=== PATIENT | male | born 1945 | race Caucasian/White ===

== ENCOUNTER 2020-02-16 10:42 | Outpatient (REF) | payer MEDICARE, MEDICAID, SELFPAY ==
[2020-02-16 13:56] LABS: MANUAL DIFF FLAG NO
[2020-02-16 14:02] LABS: Basophils Absolute Auto 0.2 X10*3/uL (0.0-0.2); Eosinophils Absolute Auto 1.2 X10*3/uL (0.0-0.4); Eosinophils Percent Auto 8.4 % (0-4); Hematocrit 47.9 % (42-52); Hemoglobin 15.5 g/dl (14.0-18.0); Imm Gran Abs Auto 0.04 X10*3/uL (0.00-0.03); Imm Gran Pct Auto 0.3 % (0.0-0.4); Lymphocytes Absolute Auto 3.4 X10*3/uL (1.2-4.9); Lymphocytes Percent Auto 23.7 % (20-40); Mean Corpuscular HGB Conc 32.4 g/dl (31.0-36.0); Mean Corpuscular Hemoglobin 30.9 pg (27.0-33.0); Mean Corpuscular Volume 95.6 fL (80-98); Mean Platelet Volume 10.6 fL (9.4-12.4); Monocytes Absolute Auto 1.2 X10*3/uL (0.1-1.2); Monocytes Percent Auto 8.1 % (2-11); Neutrophils Absolute Auto 8.5 X10*3/uL (2.0-8.3); Neutrophils Percent Auto 58.5 % (45-73); Platelet Count 269 X10*3/uL (160-400); Red Blood Count 5.01 X10*6/uL (4.60-5.80); White Blood Count 14.5 X10*3/uL (4.8-10.8)
[2020-02-16 14:41] LABS: Creatinine Urine 123.18 mg/dL
[2020-02-16 14:45] LABS: Alanine Aminotransferase 21 U/L (0-40); Albumin Level 4.4 g/dL (3.5-5.0); Alkaline Phosphatase 81 U/L (39-117); Anion Gap 18 (12-20); Aspartate Amino Transferase 16 U/L (5-37); Bilirubin Total 0.7 mg/dL (0.0-1.0); Blood Urea Nitrogen 11 mg/dL (9-16); Carbon Dioxide 25 mmol/L (22-29); Chloride 101 mmol/L (96-108); Cholesterol 164 mg/dL; Estimated Glomerular Filt Rate > 60; Glucose Random 185 mg/dL (60-115); HDL Cholesterol 35 mg/dL; LDL Cholesterol Calculated 68 mg/dl; Potassium 4.4 mmol/l (3.3-5.1); Sodium 140 mmol/L (135-145); Total Protein 7.3 g/dL (6.5-8.0); Triglycerides 309 mg/dL
[2020-02-16 14:57] LABS: Free T4 (Free Thyroxine) 0.79 ng/dL (0.71-1.85); Thyroid Stimulating Hormone 2.04 uIU/mL (0.32-4.0)
[2020-02-16 16:25] LABS: Folate > 20.0 ng/mL (> or = 4.0); Vitamin B12 661 pg/mL (200-900)
== END 2020-02-16 10:43 | disposition home or self-care (01) ==
LOC: HO.HMGCLDS 10:42
PROVIDERS: PCP Internal Medicine; Visit Provider Internal Medicine
DX: E11.65 Type 2 diabetes mellitus with hyperglycemia (principal); E78.00 Pure hypercholesterolemia, unspecified
CPT/HCPCS: 36415; 80053; 80061; 82043; 82607; 82746; 84439; 84443; 85025

== ENCOUNTER 2020-05-14 07:09 | Outpatient (REF) | payer MEDICARE, MEDICAID, SELFPAY ==
[2020-05-14 07:49] LABS: MANUAL DIFF FLAG NO
[2020-05-14 07:53] LABS: Basophils Absolute Auto 0.1 X10*3/uL (0.0-0.2); Basophils Percent Auto 0.8 % (0-2); Eosinophils Absolute Auto 0.9 X10*3/uL (0.0-0.4); Eosinophils Percent Auto 7.4 % (0-4); Hematocrit 46.2 % (42-52); Hemoglobin 15.2 g/dl (14.0-18.0); Imm Gran Abs Auto 0.04 X10*3/uL (0.00-0.03); Imm Gran Pct Auto 0.3 % (0.0-0.4); Lymphocytes Absolute Auto 2.5 X10*3/uL (1.2-4.9); Lymphocytes Percent Auto 21.5 % (20-40); Mean Corpuscular HGB Conc 32.9 g/dl (31.0-36.0); Mean Corpuscular Hemoglobin 30.8 pg (27.0-33.0); Mean Corpuscular Volume 93.5 fL (80-98); Mean Platelet Volume 9.6 fL (9.4-12.4); Monocytes Absolute Auto 0.9 X10*3/uL (0.1-1.2); Monocytes Percent Auto 7.4 % (2-11); Neutrophils Absolute Auto 7.4 X10*3/uL (2.0-8.3); Neutrophils Percent Auto 62.6 % (45-73); Platelet Count 234 X10*3/uL (160-400); Red Blood Count 4.94 X10*6/uL (4.60-5.80); Red Cell Distribution Width 12.9 % (11.0-16.0); White Blood Count 11.8 X10*3/uL (4.8-10.8)
[2020-05-14 07:59] LABS: Estimated Average Glucose 174 mg/dL; Hemoglobin A1c % 7.7 %
[2020-05-14 08:27] LABS: Alanine Aminotransferase 19 U/L (0-40); Albumin Level 4.4 g/dL (3.5-5.0); Alkaline Phosphatase 77 U/L (39-117); Anion Gap 16 (12-20); Aspartate Amino Transferase 17 U/L (5-37); Bilirubin Total 1.2 mg/dL (0.0-1.0); Blood Urea Nitrogen 14 mg/dL (9-16); Calcium 9.7 mg/dL (8.4-10.2); Carbon Dioxide 29 mmol/L (22-29); Chloride 102 mmol/L (96-108); Cholesterol 157 mg/dL; Estimated Glomerular Filt Rate > 60; Glucose Random 172 mg/dL (60-115); HDL Cholesterol 34 mg/dL; LDL Cholesterol Calculated 88 mg/dl; Potassium 4.6 mmol/L (3.3-5.1); Sodium 142 mmol/L (135-145); Total Protein 7.1 g/dL (6.5-8.0); Triglycerides 179 mg/dL
[2020-05-14 08:49] LABS: Free T4 (Free Thyroxine) 0.85 ng/dL (0.71-1.85); Thyroid Stimulating Hormone 1.34 uIU/mL (0.32-4.0)
[2020-05-14 09:05] LABS: Folate > 20.0 ng/mL (> or = 4.0); Vitamin B12 476 pg/mL (200-900)
== END 2020-05-14 07:10 | disposition home or self-care (01) ==
LOC: HO.LAB 07:09
PROVIDERS: PCP Internal Medicine; Visit Provider Internal Medicine
DX: E11.65 Type 2 diabetes mellitus with hyperglycemia (principal); I10 Essential (primary) hypertension; E78.00 Pure hypercholesterolemia, unspecified
CPT/HCPCS: 36415; 80053; 80061; 82607; 82746; 83036; 84439; 84443; 85025

== ENCOUNTER 2021-05-20 06:18 | Outpatient (REF) | payer MEDICARE, MEDICAID, SELFPAY ==
[2021-05-20 11:20] LABS: MANUAL DIFF FLAG NO
[2021-05-20 11:35] LABS: Basophils Absolute Auto 0.1 X10*3/uL (0.0-0.2); Basophils Percent Auto 0.7 % (0-2); Eosinophils Absolute Auto 0.8 X10*3/uL (0.0-0.4); Eosinophils Percent Auto 6.3 % (0-4); Imm Gran Abs Auto 0.04 X10*3/uL (0.00-0.03); Imm Gran Pct Auto 0.3 % (0.0-0.4); Lymphocytes Absolute Auto 2.8 X10*3/uL (1.2-4.9); Lymphocytes Percent Auto 22.3 % (20-40); Mean Corpuscular HGB Conc 32.6 g/dl (31.0-36.0); Mean Corpuscular Hemoglobin 31.3 pg (27.0-33.0); Mean Platelet Volume 10.3 fL (9.4-12.4); Monocytes Percent Auto 7.8 % (2-11); Neutrophils Percent Auto 62.6 % (45-73); Platelet Count 234 X10*3/uL (160-400); Red Blood Count 4.79 X10*6/uL (4.60-5.80); Red Cell Distribution Width 13.6 % (11.0-16.0); White Blood Count 12.7 X10*3/uL (4.8-10.8)
[2021-05-20 11:48] LABS: Alanine Aminotransferase 14 U/L (0-40); Albumin Level 4.3 g/dL (3.5-5.0); Alkaline Phosphatase 76 U/L (39-117); Anion Gap 15 (12-20); Aspartate Amino Transferase 14 U/L (5-37); Bilirubin Total 1.1 mg/dL (0.0-1.0); Blood Urea Nitrogen 18 mg/dL (9-16); Calcium 9.8 mg/dL (8.4-10.2); Carbon Dioxide 28 mmol/L (22-29); Chloride 103 mmol/L (96-108); Cholesterol 158 mg/dL; Estimated Glomerular Filt Rate > 60; Glucose Random 151 mg/dL (60-115); HDL Cholesterol 36 mg/dL; LDL Cholesterol Calculated 100 mg/dl; Potassium 4.6 mmol/L (3.3-5.1); Sodium 141 mmol/L (135-145); Total Protein 7.2 g/dL (6.5-8.0); Triglycerides 112 mg/dL
[2021-05-20 12:01] LABS: Estimated Average Glucose 137 mg/dL; Hemoglobin A1c % 6.4 %
[2021-05-20 12:12] LABS: Free T4 (Free Thyroxine) 0.86 ng/dL (0.71-1.85); Thyroid Stimulating Hormone 1.81 uIU/mL (0.32-4.0)
[2021-05-20 12:16] LABS: Folate 17.1 ng/mL (> or = 4.0); Vitamin B12 523 pg/mL (200-900)
[2021-05-20 12:35] LABS: Creatinine Urine 104.61 mg/dL; Microalbum/Creatinine Ratio Ur 6.6 ug/mg cr
== END 2021-05-20 06:19 | disposition home or self-care (01) ==
LOC: HO.HMGCLDS 06:18
PROVIDERS: Visit Provider Internal Medicine
DX: E11.65 Type 2 diabetes mellitus with hyperglycemia (principal); E78.00 Pure hypercholesterolemia, unspecified
CPT/HCPCS: 36415; 80053; 80061; 82043; 82607; 82746; 83036; 84439; 84443; 85025

== ENCOUNTER 2022-05-23 12:37 | Outpatient (REF) | payer MEDICARE, MEDICAID, SELFPAY ==
--- NOTE | ~2022-05-23 | XR_ITS ---
EXAMINATION: XR LUMBOSACRAL SPINE CLINICAL INFORMATION: Lumbar degenerative disc disease. COMPARISON: None available. TECHNIQUE: AP and lateral views of the lumbar spine and lateral view of the lumbosacral junction. FINDINGS: There is bony demineralization. There is a slight thoracolumbar dextroscoliosis. At L4-L5, there is moderate disc space narrowing, with vacuum disc phenomenon. The remaining disc spaces are relatively well-maintained. No acute fracture or spondylolisthesis is seen. There is multi-level thoracolumbar spondylosis. There is multi-level lumbar facet arthropathy. There are aortoiliac atherosclerotic calcifications. A 3.6 cm distal aortic aneurysm is noted. XR/XR lumbar spine 2-3V IMPRESSION: 1. There is moderate degenerative disc disease at L4-L5. 2. There is multi-level thoracolumbar spondylosis and facet arthropathy. 3. A 3.6 cm in maximal diameter distal abdominal aortic aneurysm is noted. Recommend further evaluation with ultrasound or MRI. Elective Vascular Surgery evaluation and management may be indicated. A preliminary report was provided by the [facility] on 05/31/2022.
== END 2022-05-23 12:38 | disposition home or self-care (01) ==
LOC: HO.HMGCX 12:37
PROVIDERS: PCP Internal Medicine; Visit Provider Internal Medicine
DX: M51.36 Other intervertebral disc degeneration, lumbar region (principal)
CPT/HCPCS: 72100

== ENCOUNTER 2022-06-02 05:59 | Outpatient (REF) | payer MEDICARE, MEDICAID, SELFPAY ==
[2022-06-02 06:14] LABS: MANUAL DIFF FLAG NO
[2022-06-02 07:33] LABS: Basophils Absolute Auto 0.1 X10*3/uL (0.0-0.2); Eosinophils Absolute Auto 0.7 X10*3/uL (0.0-0.4); Eosinophils Percent Auto 6.4 % (0-4); Hematocrit 47.9 % (42.0-52.0); Hemoglobin 15.8 g/dl (14.0-18.0); Imm Gran Abs Auto 0.04 X10*3/uL (0.00-0.03); Imm Gran Pct Auto 0.3 % (0.0-0.4); Lymphocytes Absolute Auto 2.9 X10*3/uL (1.2-4.9); Lymphocytes Percent Auto 25.1 % (20-40); Mean Corpuscular Volume 93.9 fL (80.0-98.0); Monocytes Percent Auto 8.6 % (2-11); Neutrophils Absolute Auto 6.7 x10*3/uL (2.0-8.3); Neutrophils Percent Auto 58.6 % (45-73); Platelet Count 267 X10*3/uL (160-400); Red Cell Distribution Width 13.4 % (11.0-16.0); White Blood Count 11.5 X10*3/uL (4.8-10.8)
[2022-06-02 07:58] LABS: Estimated Average Glucose 174 mg/dL; Hemoglobin A1c % 7.7 %
[2022-06-02 08:12] LABS: Alanine Aminotransferase 20 U/L (0-40); Albumin Level 4.4 g/dL (3.5-5.0); Alkaline Phosphatase 80 U/L (39-117); Anion Gap 13 (12-20); Aspartate Amino Transferase 16 U/L (5-37); Bilirubin Total 1.3 mg/dL (0.0-1.0); Blood Urea Nitrogen 15 mg/dL (9-16); Calcium 9.6 mg/dL (8.4-10.2); Carbon Dioxide 30 mmol/L (22-29); Chloride 103 mmol/L (96-108); Cholesterol 160 mg/dL; Estimated Glomerular Filt Rate > 60; Glucose Random 145 mg/dL (60-115); HDL Cholesterol 39 mg/dL; LDL Cholesterol Calculated 96 mg/dl; Potassium 4.4 mmol/L (3.3-5.1); Sodium 142 mmol/L (135-145); Total Protein 6.9 g/dL (6.5-8.0); Triglycerides 125 mg/dL
[2022-06-02 08:30] LABS: Creatinine Urine 75.47 mg/dL; Microalbum/Creatinine Ratio Ur 10.6 ug/mg cr
[2022-06-02 08:44] LABS: Folate 14.2 ng/mL (> or = 4.0); Free T4 (Free Thyroxine) 0.95 ng/dL (0.71-1.85); Thyroid Stimulating Hormone 2.12 uIU/mL (0.32-4.0); Vitamin B12 624 pg/mL (200-900)
== END 2022-06-02 06:00 | disposition home or self-care (01) ==
LOC: HO.LAB 05:59
PROVIDERS: PCP Internal Medicine; Visit Provider Internal Medicine
DX: E11.65 Type 2 diabetes mellitus with hyperglycemia (principal); E78.00 Pure hypercholesterolemia, unspecified
CPT/HCPCS: 36415; 80053; 80061; 82043; 82607; 82746; 83036; 84439; 84443; 85025

== ENCOUNTER 2022-06-26 08:56 | Outpatient (REF) | payer MEDICARE, MEDICAID, SELFPAY ==
--- NOTE | ~2022-06-26 | US_ITS ---
EXAMINATION: US RETROPERITONEAL LIMITED (AORTA) CLINICAL INFORMATION: Abdominal aortic aneurysm without rupture, unspecified. COMPARISON: None available. TECHNIQUE: Ohara-scale, color Doppler and spectral Doppler evaluation of the abdominal aorta. FINDINGS: The measurements of the aorta in maximum AP and transverse dimensions respectively are as follows: Proximal: 2.9 x 3.0 cm. Mid: 2.3 x 2.2 cm. Distal: 3.1 x 3.1 cm. PSV: 75.6 cm/s. The measurements of the common iliac arteries in maximum AP and TRV dimensions are as follows: Right Common Iliac Artery: 1.5 x 1.4 cm. Left Common Iliac Artery: 1.1 x 1.9 cm. US/US abdominal aortic aneurysm IMPRESSION: 3.1 cm infrarenal abdominal aortic aneurysm Best Practice Recommendation: Based on published guidelines in J Am Phil Radiol 2013; 10(10):789-794 and J Vasc Surg. 2018; 67:2-77, the recommendation for an abdominal aortic aneurysm with diameter 3.0-3.4 cm is follow-up every 3 years.
== END 2022-06-26 08:57 | disposition home or self-care (01) ==
LOC: HO.US 08:56
PROVIDERS: PCP Internal Medicine; Visit Provider Internal Medicine
DX: I71.40 Abdominal aortic aneurysm, without rupture, unspecified (principal)
CPT/HCPCS: 76706

== ENCOUNTER 2022-12-06 10:39 | Outpatient (AMB) | payer MEDICARE, MEDICAID, SELFPAY ==
--- NOTE | 2022-12-06 10:41 | A.OFFPC_ITS ---
Vital Signs 12/06/22 10:44 Height 6 ft Weight 301 lb BMI 40.8 BP 118/66 Blood Pressure Location Lt brachial Position Sitting Pulse 81 Pulse Source Pulse Oximeter Pulse Oximetry (%) 96 Oxygen Delivery Method Room Air Intake Visit Reasons: LBP, DM Abdominal aortic aneurysm, Intake Note: Patient here for LBP, DM, Abdominal Aortic Aneurysm Material Carrier Required: No Accompanied by: Self / Same As Patient Allergies semaglutide Allergy (Intermediate, Verified 12/06/22 10:46) nausea and vomiting and diarrhea Medication List - Last Reconciled 12/06/22 by Wendy Mcrae MD albuterol sulfate 2.5 mg (3 mL) inhalation QID PRN albuterol sulfate 90 mcg/actuation 2 puffs PO Q4-6H PRN empagliflozin 25 mg PO DAILY fluticasone propionate 50 mcg/actuation 1 spray intranasal DAILY fluticasone propionate 220 mcg/actuation (Flovent HFA) 2 puffs inhalation BID gabapentin 300 mg PO BEDTIME glipizide 5 mg PO DAILY 90 days lisinopril 20 mg PO DAILY metformin 1,000 mg PO BID [nebulizer As directed] oxycodone-acetaminophen 5-325 mg (Percocet) 1 tab PO TID PRN paroxetine HCl 20 mg PO QAM simvastatin 20 mg PO BEDTIME Tobacco use date assessed: 04/17/22 Fall risk assessment: No Falls in past year Last assessed Fall Risk: 12/06/22 Dental Screening Dental Screen Date: 12/06/22 Did you have a dental visit in the last 12 months?: No Did you have a dental problem in the last 6 months where you did not have access to dental care?: No Was dental information given to patient?: Patient declined HPI LBP, DM Abdominal aortic aneurysm, HPI Details 77-year-old morbidly obese male with con trolled diabetes mellitus hypertension hypercholesterol E and generalized anxiety disorder last seen in August 2022. Patient has osteoarthritis on narcotic pain medication. May complete blood work noted A1c coming down [facility] Medical History (Updated 12/06/22 @ 11:31 by Wendy Mcrae MD) Peripheral neuropathy Umbilical hernia Herniated intervertebral disc of lumbar spine Type 2 diabetes mellitus with hyperglycemia Hypercholesterolemia Gout Degenerative disc disease, lumbar Anxiety and depression Obesity Obstructive sleep apnea Hypertension Asthma Surgical History History of nasal surgery Family History Father No problems noted. Mother No problems noted. Social History Housing: Assisted Living Facility Alcohol intake: never Patient Tobacco Use Status: Former Tobacco user Tobacco use type: Cigarette e-Cigarette/Vaping Use: Never Used Second Hand Smoke Exposure: No service: No Current occupational status: disabled Cognitive needs: No Hearing needs: Yes Vision needs: Yes Questionnaire Thrive Questionnaire Date Thrive assessed: 04/17/22 STEPHEN-7 AMB Questionnaire STEPHEN-7 Date STEPHEN - 7 assessed: 04/17/22 Source: Developed by Drs. Fan Fitzpatrick, Saranya Dorantes, Simón Russo and colleagues, with an educational alana from [employer]. Physical exam (Primary Care) Vital Signs: Last Vital Signs Pulse 81 12/06/22 10:44 BP 118/66 12/06/22 10:44 Pulse Ox 96 12/06/22 10:44 Oxygen Delivery Method Room Air 12/06/22 10:44 BMI result Body Mass Index 40.8 Tobacco/Smoking Status: Tobacco use Status Tobacco use date assessed 04/17/22 12/06/22 10:42 Patient Tobacco Use Status Former Tobacco user 12/06/22 10:42 Tobacco use type Cigarette 12/06/22 10:42 e-Cigarette/Vaping Use Never Used 12/06/22 10:42 Thrive Assessment: Date of Thrive Assessment Date Thrive assessed 04/17/22 12/06/22 10:42 Const General: alert; No acute distress Eyes Conjunctivae: conjunctivae normal Resp Auscultation: clear to auscultation bilaterally Cardio Rate: regular rate Rhythm: regular rhythm GI Inspection: Yes normal to inspection Extrem General: Yes normal to inspection and No edema Results AMB Hemoglobin A1c AMB Hemoglobin A1c 6.0 % Last Edit by RENETTA Nazario on 12/06/22 10:5 4 Results Reviewed Results Reviewed: Laboratory Last Values Hgb A1c (Clinic) 6.0 % (4.0-6.0) 12/06/22 10:52 Assessment and Plan Assessment & Plan (1) Type 2 diabetes mellitus with hyperglycemia: Comment: eye [facility] [facility] Code(s): E11.65 - Type 2 diabetes mellitus with hyperglycemia Qualifiers: Diabetes mellitus exterminator helper insulin use: without senior care use Qualified Code(s): E11.65 - Type 2 diabetes mellitus with hyperglycemia Plan: Decrease the amount of carbohydrate intake, pasta, bread, rice and potatoes are all sugar and that is aside from all the sweet stuff, remember that fruits are good but they are Sweet also. Hemoglobin A1c goal of less than 7.0. Patient on Jardiance glipizide 5 mg once a day metformin a 1000 mg twice a day . . did indicate that he gets tiredness at times and question of low sugars and with his number getting down would discontinue the glipizide. (2) Hypercholesterolemia: Code(s): E78.00 - Pure hypercholesterolemia, unspecified Plan: Avoid fried foods, chicken skin, eggs, butter margarine, pastries and meat. Be it pork or beef they have a lot of cholesterol May 2022 last blood work LDL goal of less than 100 and triglyceride of less than 150. Patient on simvastatin 20 mg at bedtime (3) Generalized anxiety disorder: Comment: decline counselling 02/2021 Code(s): F41.1 - Generalized anxiety disorder Plan: Continue with therapy and medications (4) Hypertension: Code(s): I10 - Essential (primary) hypertension Qualifiers: Hypertension type: essential hypertension Qualified Code(s): I10 - Essential (primary) hypertension Plan: Continue with blood pressure medication. Decrease salt intake and exercise patient takes lisinopril 20 mg once a day (5) Obesity: Code(s): E66.9 - Obesity, unspecified Qualifiers: Obesity type: due to excess calories Obesity classification: adult class 3 (BMI >= 40) Serious obesity comorbidity presence: with serious comorbidity Body mass index: BMI 40.0-44.9 Qualified Code(s): E66.01 - Morbid (severe) obesity due to excess calories; Z68.41 - Body mass index [BMI]40.0- 44.9, adult Plan: Diet and exercise noted weight loss (6) Degenerative disc disease, lumbar: Code(s): M51.36 - Other intervertebral disc degeneration, lumbar region Plan: Narcotic pain meds: Is being prescribed with the understanding that these medications are potentially addictive and should be used only when absolutely necessary and must always be secured. Any remaining pills should be safely disposed off appropriately. Patient is advised that narcotics can impaired judgment and one should not drive or operate heavy machinery while taking these medications. Never share these medications with anybody and do not leave them unattended. They will not be replaced under any circumstances. (7) Colon cancer screening: Code(s): Z12.11 - Encounter for screening for malignant neoplasm of colon Orders: Orders AMB Hemoglobin A1c Today E11.65 - Type 2 diabetes mellitus with hyperglycemia Referrals Cologuard Test Z12.11 - Encounter for screening for malignant neoplasm of colon Medications: Discontinued glipizide Discontinued Reason: Doctor's Order 5 mg PO DAILY 90 days 90 tabs 2RF Coding Level of Care Code Est Pt Level 4 (50578) Diagnoses Type 2 diabetes mellitus with hyperglycemia, without long-term current use of insulin E11.65 Diabetes mellitus senior care insulin use: without exterminator helper use Hypercholesterolemia E78.00 Generalized anxiety disorder F41.1 Essential hypertension I10 Hypertension type: essential hypertension Class 3 severe obesity due to excess calories with serious comorbidity and body mass index (BMI) of 40.0 to 44.9 in adult E66.01; Z68.41 Obesity type: due to excess calories Obesity classification: adult class 3 (BMI >= 40) Serious obesity comorbidity presence: with serious comorbidity Body mass index: BMI 40.0-44.9 Degenerative disc disease, lumbar M51.36 Colon cancer screening Z12.11
[2022-12-06 10:44] VITALS: BP 118/66; PULSE 81; O2SAT 96; BMI 40.8
== END 2022-12-06 11:37 | disposition home or self-care (01) ==
PROVIDERS: PCP Internal Medicine; Visit Provider Internal Medicine
DX: E11.65 Type 2 diabetes mellitus with hyperglycemia (principal); E78.00 Pure hypercholesterolemia, unspecified; E66.01 Morbid (severe) obesity due to excess calories; Z68.41 Body mass index [BMI] 40.0-44.9, adult; F41.1 Generalized anxiety disorder; I10 Essential (primary) hypertension; M51.36 Other intervertebral disc degeneration, lumbar region; Z12.11 Encounter for screening for malignant neoplasm of colon
CPT/HCPCS: 83036; 99214

== ENCOUNTER 2023-04-03 10:33 | Outpatient (AMB) | payer MEDICARE, MEDICAID, SELFPAY ==
--- NOTE | 2023-04-03 10:33 | A.OFFPC_ITS ---
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 Patient does receive narcotic pain medication regularly. Had Cologuard positive and was referred to Gastroenterology but patient has not seen the doctor. [facility] Medical History (Updated 12/25/22 @ 18:26 by Wendy Mcrae MD) Peripheral neuropathy Umbilical hernia Herniated intervertebral disc of lumbar spine Type 2 diabetes mellitus with hyperglycemia Hypercholesterolemia Gout Degenerative disc disease, lumbar Anxiety and depression Obesity Obstructive sleep apnea Hypertension Asthma Surgical History History of nasal surgery Family History Father No problems noted. Mother No problems noted. Social History Housing: Assisted Living Facility Alcohol intake: never Patient Tobacco Use Status: Former Tobacco user Tobacco use type: Cigarette e-Cigarette/Vaping Use: Never Used Second Hand Smoke Exposure: No service: No Current occupational status: disabled Cognitive needs: No Hearing needs: Yes Vision needs: Yes Questionnaire Thrive Questionnaire Date Thrive assessed: 04/03/23 AUDIT C Alcohol Use Questionnaire (AUDIT-C) 1. How often do you have a drink containing alcohol?: Never 3. How often do you have six or more drinks on one occasion?: Never Total Score: 0 STEPHEN-7 AMB Questionnaire STEPHEN-7 Date STEPHEN - 7 assessed: 04/03/23 Source: Developed by Drs. Fan Fitzpatrick, Saranya Dorantes, Simón Russo and colleagues, with an educational alana from [employer]. Physical exam (Primary Care) Tobacco/Smoking Status: Tobacco use Status Tobacco use date assessed 04/03/23 04/03/23 10:35 Patient Tobacco Use Status Former Tobacco user 04/03/23 10:35 Tobacco use type Cigarette 04/03/23 10:35 e-Cigarette/Vaping Use Never Used 04/03/23 10:35 Thrive Assessment: Date of Thrive Assessment Date Thrive assessed 04/03/23 04/03/23 10:35 Telehealth Telehealth Location of provider rendering services: practice address Location of patient: address on file Patient Identification confirmed using: Name, : Yes Telehealth method: voice only (android) Patient verbally consented to treatment: Yes Patient verbally consented to billing insurance company: Yes Patient informed of any privacy concerns related to visit: Yes Minutes spent on Phone/Video with Pt.: 25 Assessment and Plan Assessment & Plan (1) Positive colorectal cancer screening using Cologuard test: Code(s): R19.5 - Other fecal abnormalities Plan: Patient is reminded about gastroenterology referral. (2) Type 2 diabetes mellitus with hyperglycemia: Comment: eye [facility] Code(s): E11.65 - Type 2 diabetes mellitus with hyperglycemia Qualifiers: Diabetes mellitus termite exterminator helper insulin use: without shelter use Qualified Code(s): E11.65 - Type 2 diabetes mellitus with hyperglycemia Plan: Decrease the amount of carbohydrate intake, pasta, bread, rice and potatoes are all sugar and that is aside from all the sweet stuff, remember that fruits are good but they are Sweet also. Hemoglobin A1c goal of less than 6.5 patient takes Jardiance 25 mg once a day and metformin a 1000 mg twice a day (3) Hypercholesterolemia: Code(s): E78.00 - Pure hypercholesterolemia, unspecified Plan: Avoid fried foods, chicken skin, eggs, butter margarine, pastries and meat. Be it pork or beef they have a lot of cholesterol LDL goal of less than 100 and triglyceride of less than 150 May 2022 last blood work (4) Obesity: Code(s): E66.9 - Obesity, unspecified Qualifiers: Obesity type: due to excess calories Obesity classification: adult class 3 (BMI >= 40) Serious obesity comorbidity presence: with serious comorbidity Body mass index: BMI 40.0-44.9 Qualified Code(s): E66.01 - Morbid (severe) obesity due to excess calories; Z68.41 - Body mass index [BMI]40.0-44.9 , adult Plan: Diet and exercise (5) Hypertension: Code(s): I10 - Essential (primary) hypertension Qualifiers: Hypertension type: essential hypertension Qualified Code(s): I10 - Essential (primary) hypertension Plan: Continue with blood pressure medication. Decrease salt intake and exercise patient on lisinopril 20 mg once a day (6) Degenerative disc disease, lumbar: Code(s): M51.36 - Other intervertebral disc degeneration, lumbar region Plan: Narcotic pain meds: Is being prescribed with the understanding that these medications are potentially addictive and should be used only when absolutely necessary and must always be secured. Any remaining pills should be safely disposed off appropriately. Patient is advised that narcotics can impaired judgment and one should not drive or operate heavy machinery while taking these medications. Never share these medications with anybody and do not leave them unattended. They will not be replaced under any circumstances. Orders: Orders Complete Blood Count Auto Diff 3 Months E11.65 - Type 2 diabetes mellitus with hyperglycemia Free T4 (Free Thyroxine) 3 Months E11.65 - Type 2 diabetes mellitus with hyperglycemia Thyroid Stimulating Hormone 3 Months E11.65 - Type 2 diabetes mellitus with hyp erglycemia Lipid Panel 3 Months E11.65 - Type 2 diabetes mellitus with hyperglycemia, E78.00 - Pure hypercholesterolemia, unspecified Vitamin B12 and Folate 3 Months E11.65 - Type 2 diabetes mellitus with hyperglycemia Microalbumin, Random (w Creat) 3 Months E11.65 - Type 2 diabetes mellitus with hyperglycemia Hemoglobin A1c 3 Months E11.65 - Type 2 diabetes mellitus with hyperglycemia Comprehensive Met. Panel 3 Months E11.65 - Type 2 diabetes mellitus with hyp erglycemia Creatinine Urine 3 Months E11.65 - Type 2 diabetes mellitus with hyperglycemia Medications: Refilled oxycodone-acetaminophen 5-325 mg (Percocet) 1 tab PO TID PRN 90 tabs 0RF pain E78.00 - Pure hypercholesterolemia, unspecified Coding Level of Care Code Tele Est Pt Level 4 (92961) Diagnoses Positive colorectal cancer screening using Cologuard test R19.5 Type 2 diabetes mellitus with hyperglycemia, without long-term current use of insulin E11.65 Diabetes mellitus termite exterminator helper insulin use: without termite exterminator helper use Hypercholesterolemia E78.00 Class 3 severe obesity due to excess calories with serious comorbidity and body mass index (BMI) of 40.0 to 44.9 in adult E66.01; Z68.41 Obesity type: due to excess calories Obesity classification: adult class 3 (BMI >= 40) Serious obesity comorbidity presence: with serious comorbidity Body mass index: BMI 40.0-44.9 Essential hypertension I10 Hypertension type: essential hypertension Degenerative disc disease, lumbar M51.36
== END 2023-04-03 12:41 | disposition home or self-care (01) ==
LOC: HO.HMGH 10:33
PROVIDERS: PCP Internal Medicine; Visit Provider Internal Medicine
DX: E11.65 Type 2 diabetes mellitus with hyperglycemia (principal); E66.01 Morbid (severe) obesity due to excess calories; Z68.41 Body mass index [BMI] 40.0-44.9, adult; R19.5 Other fecal abnormalities; E78.00 Pure hypercholesterolemia, unspecified; I10 Essential (primary) hypertension; M51.36 Other intervertebral disc degeneration, lumbar region
CPT/HCPCS: 99443

== ENCOUNTER 2023-06-12 06:57 | Outpatient (REF) | payer MEDICARE, MEDICAID, SELFPAY ==
[2023-06-12 10:22] LABS: MANUAL DIFF FLAG NO
[2023-06-12 10:42] LABS: Basophils Absolute Auto 0.1 X10*3/uL (0.0-0.2); Basophils Percent Auto 1.1 % (0-2); Eosinophils Absolute Auto 0.7 X10*3/uL (0.0-0.4); Eosinophils Percent Auto 7.8 % (0-4); Hematocrit 48.9 % (42.0-52.0); Hemoglobin 16.2 g/dl (14.0-18.0); Imm Gran Abs Auto 0.03 X10*3/uL (0.00-0.03); Imm Gran Pct Auto 0.3 % (0.0-0.4); Lymphocytes Absolute Auto 2.3 X10*3/uL (1.2-4.9); Lymphocytes Percent Auto 25.2 % (20-40); Mean Corpuscular HGB Conc 33.1 g/dl (31.0-36.0); Mean Corpuscular Hemoglobin 31.6 pg (27.0-33.0); Mean Corpuscular Volume 95.3 fL (80.0-98.0); Mean Platelet Volume 10.7 fL (9.4-12.4); Monocytes Absolute Auto 0.8 X10*3/uL (0.1-1.2); Monocytes Percent Auto 8.7 % (2-11); Neutrophils Absolute Auto 5.3 x10*3/uL (2.0-8.3); Neutrophils Percent Auto 56.9 % (45-73); Platelet Count 217 X10*3/uL (160-400); Red Blood Count 5.13 X10*6/uL (4.60-5.80); Red Cell Distribution Width 13.2 % (11.0-16.0); White Blood Count 9.2 X10*3/uL (4.8-10.8)
[2023-06-12 11:06] LABS: Estimated Average Glucose 160 mg/dL; Hemoglobin A1c % 7.2 % (<6.0)
[2023-06-12 11:13] LABS: Creatinine Urine 60.85 mg/dL; Microalbum/Creatinine Ratio Ur 9.8 ug/mg cr (<30)
[2023-06-12 12:03] LABS: Alanine Aminotransferase 14 U/L (0-40); Albumin Level 4.2 g/dL (3.5-5.0); Alkaline Phosphatase 76 U/L (39-117); Anion Gap 13 (12-20); Aspartate Amino Transferase 15 U/L (5-37); Blood Urea Nitrogen 13 mg/dL (9-16); Calcium 9.8 mg/dL (8.4-10.2); Carbon Dioxide 28 mmol/L (22-29); Chloride 104 mmol/L (96-108); Cholesterol 154 mg/dL (<200); Estimated Glomerular Filt Rate > 60; Glucose Random 147 mg/dL (60-115); HDL Cholesterol 42 mg/dL (>40); LDL Cholesterol Calculated 92 mg/dL (<100); Potassium 4.1 mmol/L (3.3-5.1); Sodium 141 mmol/L (135-145); Total Protein 7.4 g/dL (6.5-8.0); Triglycerides 103 mg/dL (<150)
[2023-06-12 12:10] LABS: Folate 11.6 ng/mL (> or = 4.0); Vitamin B12 739 pg/mL (200-900)
[2023-06-12 12:32] LABS: Free T4 (Free Thyroxine) 0.84 ng/dL (0.71-1.85); Thyroid Stimulating Hormone 2.02 uIU/mL (0.32-4.0)
== END 2023-06-12 06:58 | disposition home or self-care (01) ==
LOC: HO.HMGCLDS 06:57
PROVIDERS: PCP Internal Medicine; Visit Provider Internal Medicine
DX: E11.65 Type 2 diabetes mellitus with hyperglycemia (principal); E78.00 Pure hypercholesterolemia, unspecified
CPT/HCPCS: 36415; 80053; 80061; 82043; 82570; 82607; 82746; 83036; 84439; 84443; 85025

== ENCOUNTER 2023-07-13 10:14 | Outpatient (AMB) | payer MEDICARE, MEDICAID, SELFPAY ==
[2023-07-13 10:20] VITALS: BP 124/62; PULSE 78; O2SAT 93; BMI 40.8
--- NOTE | 2023-07-13 10:20 | MHC.PC.OV ---
Vital Signs 07/13/23 10:20 Height 6 ft Weight 301 lb BMI 40.8 BP 124/62 Blood Pressure Location Lt brachial Position Sitting Pulse 78 Pulse Source Pulse Oximeter Pulse Oximetry (%) 93 Oxygen Delivery Method Room Air Intake Visit Reasons: DM , LBP Cable Weaver Required: No Allergies semaglutide Allergy (Intermediate, Verified 07/13/23 10:20) nausea and vomiting and diarrhea Tobacco use date assessed: 07/13/23 Fall risk assessment: No Falls in past year Last assessed Fall Risk: 07/13/23 Dental Screening Dental Screen Date: 12/06/22 HPI DM , LBP HPI Details 77-year-old morbidly obese male with diabetes mellitus hypercholesterolemia hypertension lumbar degenerative disc disease on narcotic pain medication seen every 3 months for refill on the pain medication. Patient had a positive Cologuard test and has been referred to Gastroenterology. [facility] Medical History (Updated 07/13/23 @ 11:10 by Wendy Mcrae MD) Peripheral neuropathy Umbilical hernia Herniated intervertebral disc of lumbar spine Type 2 diabetes mellitus with hyperglycemia Hypercholesterolemia Gout Degenerative disc disease, lumbar Anxiety and depression Obesity Obstructive sleep apnea Hypertension Asthma Surgical History History of nasal surgery Family History Father No problems noted. Mother No problems noted. Social History Housing: Assisted Living Facility Alcohol intake: never Patient Tobacco Use Status: Former Tobacco user Tobacco use type: Cigarette e-Cigarette/Vaping Use: Never Used Second Hand Smoke Exposure: No service: No Current occupational status: disabled Cognitive needs: No Hearing needs: Yes Vision needs: Yes Questionnaire Thrive Questionnaire Date Thrive assessed: 04/03/23 I am a: Patient What is your living situation today?: I have a steady place to live Within the past 12 months, did the food you bought not last and you didn't have the money to get more?: Never true Within the past 12 months, did you worry whether your food would run out before you got money to buy more?: Never true Do you have trouble paying for medicines?: No Do you have trouble getting transportation to medical appointments?: No Do you have trouble paying your heating and electricity bill?: No Do you have trouble taking care of your child, family member or friend?: No Do you have trouble with day-to-day activities such as bathing, preparing meals, shopping, managing finances, etc.?: No Are you currently unemployed and looking for a job?: No Are you interested in more education?: No Please select the resources that you would like help with: None Currently or been in a relationship where the following occur: no concerns reported THRIVE Score: 0 AUDIT C Alcohol Use Questionnaire (AUDIT-C) 1. How often do you have a drink containing alcohol?: Never 3. How often do you have six or more drinks on one occasion?: Never Total Score: 0 STEPHEN-7 AMB Questionnaire STEPHEN-7 Date STEPHEN - 7 assessed: 04/03/23 Source: Developed by Drs. Fan Fitzpatrick, Saranya Dorantes, Simón Russo and colleagues, with an educational alana from [employer]. Physical exam (Primary Care) Vital Signs: Last Vital Signs Pulse 78 07/13/23 10:20 BP 124/62 07/13/23 10:20 Pulse Ox 93 07/13/23 10:20 Oxygen Delivery Method Room Air 07/13/23 10:20 BMI result Body Mass Index 40.8 Tobacco/Smoking Status: Tobacco use Status Tobacco use date assessed 07/13/23 07/13/23 10:21 Patient Tobacco Use Status Former Tobacco user 07/13/23 10:21 Tobacco use type Cigarette 07/13/23 10:21 e-Cigarette/Vaping Use Never Used 07/13/23 10:21 Thrive Assessment: Date of Thrive Assessment Date Thrive assessed 04/03/23 07/13/23 10:21 Currently or been in a relationship where the following occur: no concerns reported Const General: alert; No acute distress Eyes Conjunctivae: conjunctivae normal Resp Auscultation: clear to auscultation bilaterally Cardio Rate: regular rate Rhythm: regular rhythm GI Inspection: Yes normal to inspection Extrem General: Yes normal to inspection and No edema Assessment and Plan Assessment & Plan (1) Positive colorectal cancer screening using Cologuard test: Code(s): R19.5 - Other fecal abnormalities Plan: Patient is reminded again about the colonoscopy. (2) Type 2 diabetes mellitus with hyperglycemia: Comment: eye [facility] Code(s): E11.65 - Type 2 diabetes mellitus with hyperglycemia Qualifiers: Diabetes mellitus long term care social worker insulin use: without long term care social worker use Qualified Code(s): E11.65 - Type 2 diabetes mellitus with hyperglycemia Plan: Decrease the amount of carbohydrate intake, pasta, bread, rice and potatoes are all sugar and that is aside from all the sweet stuff, remember that fruits are good but they are Sweet also. Hemoglobin A1c goal of less than 7.0 on Jardiance 25 mg once a day metformin 1000 mg twice a day (3) Hypercholesterolemia: Code(s): E78.00 - Pure hypercholesterolemia, unspecified Plan: Avoid fried foods, chicken skin, eggs, butter margarine, pastries and meat. Be it pork or beef they have a lot of cholesterol taking simvastatin 20 mg once a day (4) Hypertension: Code(s): I10 - Essential (primary) hypertension Qualifiers: Hypertension type: essential hypertension Qualified Code(s): I10 - Essential (primary) hypertension Plan: Continue with blood pressure medication. Decrease salt intake and exercise takes lisinopril 20 mg once a day (5) Generalized anxiety disorder: Comment: decline counselling 02/2021 Code(s): F41.1 - Generalized anxiety disorder Plan: Stable with the medication (6) Degenerative disc disease, lumbar: Code(s): M51.36 - Other intervertebral disc degeneration, lumbar region Plan: Narcotic pain meds: Is being prescribed with the understanding that these medications are potentially addictive and should be used only when absolutely necessary and must always be secured. Any remaining pills should be safely disposed off appropriately. Patient is advised that narcotics can impaired judgment and one should not drive or operate heavy machinery while taking these medications. Never share these medications with anybody and do not leave them unattended. They will not be replaced under any circumstances. (7) Obesity: Code(s): E66.9 - Obesity, unspecified Qualifiers: Obesity type: due to excess calories Obesity classification: adult class 3 (BMI >= 40) Serious obesity comorbidity presence: with serious comorbidity Body mass index: BMI 40.0-44.9 Qualified Code(s): E66.01 - Morbid (severe) obesity due to excess calories; Z68.41 - Body mass index [BMI]40.0-44.9, adult Plan: Diet and exercise (8) Colonoscopy refused: Code(s): Z53.20 - Procedure and treatment not carried out because of patient's decision for unspecified reasons Plan: PAtient declined Medications: New blood-glucose meter As directed check the blood sugar once a day 1 ea 0RF E11.65 - Type 2 diabetes mellitus with hyperglycemia blood sugar diagnostic (A8 [employer] Ultra Test strips) As directed check the blood sugar once a day 100 ea 3RF E11.65 - Type 2 diabetes mellitus with hyperglycemia dulaglutide (Trulicity) 0.75 mg (0.5 mL) subcut QWEEK 2 mL 0RF E11.65 - Type 2 diabetes mellitus with hyperglycemia Coding Level of Care Code Est Pt Level 4 (59156) Diagnoses Positive colorectal cancer screening using Cologuard test R19.5 Type 2 diabetes mellitus with hyperglycemia, without long-term current use of insulin E11.65 Diabetes mellitus prison insulin use: without long term care social worker use Hypercholesterolemia E78.00 Essential hypertension I10 Hypertension type: essential hypertension Generalized anxiety disorder F41.1 Degenerative disc disease, lumbar M51.36 Class 3 severe obesity due to excess calories with serious comorbidity and body mass index (BMI) of 40.0 to 44.9 in adult E66.01; Z68.41 Obesity type: due to excess calories Obesity classification: adult class 3 (BMI >= 40) Serious obesity comorbidity presence: with serious comorbidity Body mass index: BMI 40.0-44.9 Colonoscopy refused Z53.20
== END 2023-07-13 11:15 | disposition home or self-care (01) ==
PROVIDERS: PCP Internal Medicine; Visit Provider Internal Medicine
DX: E11.65 Type 2 diabetes mellitus with hyperglycemia (principal); E66.01 Morbid (severe) obesity due to excess calories; Z68.41 Body mass index [BMI] 40.0-44.9, adult; R19.5 Other fecal abnormalities; E78.00 Pure hypercholesterolemia, unspecified; I10 Essential (primary) hypertension; F41.1 Generalized anxiety disorder; M51.36 Other intervertebral disc degeneration, lumbar region; Z53.20 Procedure and treatment not carried out because of patient's decision for unspecified reasons
CPT/HCPCS: 99214

== ENCOUNTER 2023-11-29 09:54 | Outpatient (AMB) | payer MEDICARE, MEDICAID, SELFPAY ==
--- NOTE | 2023-11-29 10:00 | MHC.PC.OV ---
Vital Signs 11/29/23 10:03 Height 6 ft Weight 295 lb BMI 40.0 BP 118/72 Blood Pressure Location Lt brachial Position Sitting Pulse 88 Pulse Source Pulse Oximeter Pulse Oximetry (%) 94 Oxygen Delivery Method Room Air Intake Visit Reasons: LBP Life Sciences Director Required: No Accompanied by: Self / Same As Patient Allergies semaglutide Allergy (Intermediate, Verified 11/29/23 10:07) nausea and vomiting and diarrhea Medication List - Last Reconciled 11/29/23 by Wendy Mcrae MD albuterol sulfate 2.5 mg (3 mL) inhalation QID PRN albuterol sulfate 90 mcg/actuation 2 puffs PO Q4-6H PRN blood sugar diagnostic ([employer] Ultra Test strips) As directed check the blood sugar once a day blood-glucose meter As directed check the blood sugar once a day dulaglutide (Trulicity) 0.75 mg (0.5 mL) subcut QWEEK empagliflozin 25 mg PO DAILY fluticasone propionate 220 mcg/actuation 2 puffs inhalation BID fluticasone propionate 50 mcg/actuation 1 spray intranasal DAILY gabapentin 300 mg PO BEDTIME lisinopril 20 mg PO DAILY metformin 1,000 mg PO BID [nebulizer As directed] oxycodone-acetaminophen 5-325 mg (Percocet) 1 tab PO TID PRN paroxetine HCl 20 mg PO QAM simvastatin 20 mg PO BEDTIME Tobacco use date assessed: 07/13/23 Fall risk assessment: No Falls in past year Last assessed Fall Risk: 11/29/23 Dental Screening Dental Screen Date: 11/29/23 Did you have a dental visit in the last 12 months?: No Did you have a dental problem in the last 6 months where you did not have access to dental care?: No Was dental information given to patient?: Patient has dentist HPI LBP HPI Details 78-year-old morbidly obese male(noted 6 lb weight loss) having controlled diabetes mellitus hypertension hypercholesterolemia generalized anxiety disorder lumbar degenerative disc disease on narcotic pain medication coming in for follow-up. Patient had a positive Cologuard test and was referred to Gastroenterology. [facility] eye exam. declined colon test [facility] Medical History (Updated 11/29/23 @ 10:18 by Wendy Mcrae MD) Colon cancer screening Peripheral neuropathy Umbilical hernia Herniated intervertebral disc of lumbar spine Type 2 diabetes mellitus with hyperglycemia Hypercholesterolemia Gout Degenerative disc disease, lumbar Anxiety and depression Obesity Obstructive sleep apnea Hypertension Asthma Surgical History History of nasal surgery Family History Father No problems noted. Mother No problems noted. Social History Housing: Assisted Living Facility Alcohol intake: never Patient Tobacco Use Status: Former Tobacco user Tobacco use type: Cigarette e-Cigarette/Vaping Use: Never Used Second Hand Smoke Exposure: No service: No Current occupational status: disabled Cognitive needs: No Hearing needs: Yes Vision needs: Yes Questionnaire PHQ-9 Over the last 2 weeks, how often have you been bothered by any of the following problems? 1. Little interest or pleasure in doing things: not at all 2. Feeling down, depressed, or hopeless: not at all 3. Trouble falling or staying asleep, or sleeping too much: not at all 4. Feeling tired or having little energy: not at all 5. Poor appetite or overeating: not at all 6. Feeling bad about yourself - or that you are a failure or have let yourself or your family down: not at all 7. Trouble concentrating on things, such as reading the newspaper or watching television: not at all 8. Moving or speaking so slowly that other people could have noticed. Or the opposite - being so fidgety or restless that you have been moving around a lot more than usual: not at all 9. Thoughts that you would be better off or of hurting yourself in some way: not at all Total score: 0 Depression Screening Interpretation: Negative Depression Screening Done: Yes Source: Developed by Drs. Fan Fitzpatrick, Saranya Dorantes, Simón Russo and colleagues, with an educational alana from [employer]. Thrive Questionnaire Date Thrive assessed: 04/03/23 Are you currently unemployed and looking for a job?: Yes AUDIT C Alcohol Use Questionnaire (AUDIT-C) 1. How often do you have a drink containing alcohol?: Never 3. How often do you have six or more drinks on one occasion?: Never Total Score: 0 STEPHEN-7 AMB Questionnaire STEPHEN-7 Date STEPHEN - 7 assessed: 04/03/23 Source: Developed by Drs. Fan Fitzpatrick, Saranya Dorantes, Simón Russo and colleagues, with an educational alana from [employer]. Physical exam (Primary Care) Vital Signs: Last Vital Signs Pulse 88 11/29/23 10:03 BP 118/72 11/29/23 10:03 Pulse Ox 94 11/29/23 10:03 Oxygen Delivery Method Room Air 11/29/23 10:03 BMI result Body Mass Index 40.0 Tobacco/Smoking Status: Tobacco use Status Tobacco use date assessed 07/13/23 11/29/23 10:00 Patient Tobacco Use Status Former Tobacco user 11/29/23 10:00 Tobacco use type Cigarette 11/29/23 10:00 e-Cigarette/Vaping Use Never Used 11/29/23 10:00 PHQ-9: PHQ-9 Score PHQ-9: Total score 0 11/29/23 10:11 Depression Screening Interpretation: Negative Thrive Assessment: Date of Thrive Assessment Date Thrive assessed 04/03/23 11/29/23 10:00 Const General: alert; No acute distress Eyes Conjunctivae: conjunctivae normal Resp Auscultation: clear to auscultation bilaterally Cardio Rate: regular rate Rhythm: regular rhythm GI Inspection: Yes normal to inspection Extrem General: Yes normal to inspection and No edema Results AMB Hemoglobin A1c AMB Hemoglobin A1c 6.9 % Last Edit by Laura Childress CMA on 11/29/23 10:14 Results Reviewed Results Reviewed: Laboratory Last Values Hgb A1c (Clinic) 6.9 % (4.0-6.0) H 11/29/23 10:06 Coding Level of Care Code Est Pt Level 4 (92052) Diagnoses Morbid obesity E66.01 Colonoscopy refused Z53.20 Type 2 diabetes mellitus with hyperglycemia, without long-term current use of insulin E11.65 Diabetes mellitus dedicated intermodal truck driver insulin use: without dedicated intermodal truck driver use Essential hypertension I10 Hypertension type: essential hypertension Mild intermittent asthma without complication J45.20 Asthma severity: mild Asthma persistence: intermittent Asthma complication type: uncomplicated Hypercholesterolemia E78.00 Degenerative disc disease, lumbar M51.36 Assessment & Plan Assessment & Plan (1) Morbid obesity: Code(s): E66.01 - Morbid (severe) obesity due to excess calories Category: Medical Plan: Diet and exercise (2) Colonoscopy refused: Code(s): Z53.20 - Procedure and treatment not carried out because of patient's decision for unspecified reasons Category: Medical Plan: Discussed with the patient regarding colonoscopy. Cologuard positive (3) Type 2 diabetes mellitus with hyperglycemia: Comment: eye [facility] Code(s): E11.65 - Type 2 diabetes mellitus with hyperglycemia Category: Medical Qualifiers: Diabetes mellitus usp insulin use: without dedicated intermodal truck driver use Qualified Code(s): E11.65 - Type 2 diabetes mellitus with hyperglycemia Plan: Decrease the amount of carbohydrate intake, pasta, bread, rice and potatoes are all sugar and that is aside from all the sweet stuff, remember that fruits are good but they are Sweet also. Hemoglobin A1c goal of less than 7.0 on Jardiance 25 mg once a day metformin a 1000 mg twice a day and Trulicity 0.75 mg once a week (4) Hypertension: Code(s): I10 - Essential (primary) hypertension Category: Medical Qualifiers: Hypertension type: essential hypertension Qualified Code(s): I10 - Essential (primary) hypertension Plan: Continue with blood pressure medication. Decrease salt intake and exercise on lisinopril 20 mg once a day (5) Asthma: Comment: PFT restrictive and mild asthma in June 2018 Code(s): J45.909 - Unspecified asthma, uncomplicated Category: Medical Qualifiers: Asthma severity: mild Asthma persistence: intermittent Asthma complication type: uncomplicated Qualified Code(s): J45.20 - Mild intermittent asthma, uncomplicated Plan: Continue with inhalers (6) Hypercholesterolemia: Code(s): E78.00 - Pure hypercholesterolemia, unspecified Category: Medical Plan: Avoid fried foods, chicken skin, eggs, butter margarine, pastries and meat. Be it pork or beef they have a lot of cholesterol May 2023 last blood work\on simvastatin 20 mg at bedtime (7) Degenerative disc disease, lumbar: Code(s): M51.36 - Other intervertebral disc degeneration, lumbar region Category: Medical Plan: Narcotic pain meds: Is being prescribed with the understanding that these medications are potentially addictive and should be used only when absolutely necessary and must always be secured. Any remaining pills should be safely disposed off appropriately. Patient is advised that narcotics can impaired judgment and one should not drive or operate heavy machinery while taking these medications. Never share these medications with anybody and do not leave them unattended. They will not be replaced under any circumstances. Orders: Orders AMB Hemoglobin A1c Today E11.65 - Type 2 diabetes mellitus with hyperglycemia Medications: Refilled oxycodone-acetaminophen 5-325 mg (Percocet) 1 tab PO TID PRN 90 tabs 0RF pain E78.00 - Pure hypercholesterolemia, unspecified
[2023-11-29 10:03] VITALS: BP 118/72; PULSE 88; O2SAT 94; BMI 40.0
== END 2023-11-29 10:31 | disposition home or self-care (01) ==
PROVIDERS: PCP Internal Medicine; Visit Provider Internal Medicine
DX: E11.65 Type 2 diabetes mellitus with hyperglycemia (principal); E66.813 Obesity, class 3; Z68.41 Body mass index [BMI] 40.0-44.9, adult; Z53.20 Procedure and treatment not carried out because of patient's decision for unspecified reasons; I10 Essential (primary) hypertension; J45.20 Mild intermittent asthma, uncomplicated; E78.00 Pure hypercholesterolemia, unspecified; M51.36 Other intervertebral disc degeneration, lumbar region

== ENCOUNTER → 2023-11-29 09:54 | Outpatient (BNVA) | payer MEDICARE, MEDICAID, SELFPAY | PROVIDERS: PCP Internal Medicine; Visit Provider Internal Medicine | DX: E66.01 Morbid (severe) obesity due to excess calories (principal); E11.65 Type 2 diabetes mellitus with hyperglycemia; I10 Essential (primary) hypertension; J45.20 Mild intermittent asthma, uncomplicated; E78.00 Pure hypercholesterolemia, unspecified; M51.369 Other intervertebral disc degeneration, lumbar region without mention of lumbar back pain or lower extremity pain; Z53.20 Procedure and treatment not carried out because of patient's decision for unspecified reasons | CPT/HCPCS: 83036; 96127; 99212 ==

== ENCOUNTER 2024-04-10 12:39 | Outpatient (AMB) | payer MEDICARE, MEDICAID, SELFPAY ==
--- NOTE | 2024-04-10 12:55 | MHC.PC.OV ---
Vital Signs 04/10/24 13:01 Height 6 ft Weight 298 lb 4 oz BMI 40.4 BP 112/64 Blood Pressure Location Lt brachial Position Sitting Pulse 92 Pulse Source Pulse Oximeter Temp 96.8 F Temp Source Temporal Artery Scan Pulse Oximetry (%) 95 Oxygen Delivery Method Room Air Intake Visit Reasons: DM, LBP Transportation Engineer Required: No Accompanied by: Self / Same As Patient Allergies semaglutide Allergy (Intermediate, Verified 04/10/24 12:57) nausea and vomiting and diarrhea Tobacco use date assessed: 04/10/24 Fall risk assessment: No Falls in past year Last assessed Fall Risk: 04/10/24 Dental Screening Dental Screen Date: 04/10/24 Did you have a dental visit in the last 12 months?: Yes Did you have a dental problem in the last 6 months where you did not have access to dental care?: No Was dental information given to patient?: Patient has dentist HPI DM, LBP HPI Details The patient is an 78-year-old male presenting for a follow-up visit to manage his chronic medical conditions. He is morbidly obese and has a history of multiple comorbidities including asthma, essential hypertension, obstructive sleep apnea, generalized anxiety disorder, type 2 diabetes mellitus, lumbar degenerative disc disease, and hypercholesterolemia. The patient has been unable to tolerate CPAP therapy for his obstructive sleep apnea. He was last seen in November, with blood work completed in May showing normal blood counts and good electrolyte levels. His Hemoglobin A1c, assessed last in November, was recorded at 6.9%. Current treatment for diabetes includes metformin 1000 mg twice daily and Jardiance 25 mg daily. He has been initiated on terzepidide, although there are concerns regarding insurance coverage. Blood pressure management involves lisinopril 20 mg daily, and hypercholesterolemia is being addressed with simvastatin 20 mg nightly, aiming for LDL cholesterol levels below 100 mg/dL and triglycerides under 150 mg/dL. His LDL cholesterol was most recently recorded at 92 mg/dL. Ongoing treatment plans include further blood work by May and continuation of present medications. [facility] Medical History (Updated 11/29/23 @ 10:18 by Wendy Mcrae MD) Colon cancer screening Peripheral neuropathy Umbilical hernia Herniated intervertebral disc of lumbar spine Type 2 diabetes mellitus with hyperglycemia Hypercholesterolemia Gout Degenerative disc disease, lumbar Anxiety and depression Obesity Obstructive sleep apnea Hypertension Asthma Surgical History History of nasal surgery Family History Father No problems noted. Mother No problems noted. Social History Housing: Assisted Living Facility Alcohol intake: never Patient Tobacco Use Status: Former Tobacco user Tobacco use type: Cigarette e-Cigarette/Vaping Use: Never Used Second Hand Smoke Exposure: No service: No Current occupational status: disabled Cognitive needs: No Hearing needs: Yes Vision needs: Yes Questionnaire PHQ-9 Over the last 2 weeks, how often have you been bothered by any of the following problems? 1. Little interest or pleasure in doing things: not at all 2. Feeling down, depressed, or hopeless: not at all 3. Trouble falling or staying asleep, or sleeping too much: not at all 4. Feeling tired or having little energy: not at all 5. Poor appetite or overeating: not at all 6. Feeling bad about yourself - or that you are a failure or have let yourself or your family down: not at all 7. Trouble concentrating on things, such as reading the newspaper or watching television: not at all 8. Moving or speaking so slowly that other people could have noticed. Or the opposite - being so fidgety or restless that you have been moving around a lot more than usual: not at all 9. Thoughts that you would be better off or of hurting yourself in some way: not at all Total score: 0 Depression Screening Interpretation: Negative Depression Screening Done: Yes 21174 - PHQ-9 Billing: Yes Source: Developed by Drs. Fan Fitzpatrick, Saranya Dorantes, Simón Russo and colleagues, with an educational alana from [employer]. Thrive Questionnaire Date Thrive assessed: 04/10/24 I am a: Patient What is your living situation today?: I have a steady place to live Within the past 12 months, did the food you bought not last and you didn't have the money to get more?: Never true Within the past 12 months, did you worry whether your food would run out before you got money to buy more?: Never true Do you have trouble paying for medicines?: No Do you have trouble getting transportation to medical appointments?: No Do you have trouble paying your heating and electricity bill?: No Do you have trouble taking care of your child, family member or friend?: No Do you have trouble with day-to-day activities such as bathing, preparing meals, shopping, managing finances, etc.?: No Are you currently unemployed and looking for a job?: No Are you interested in more education?: No Please select the resources that you would like help with: None Currently or been in a relationship where the following occur: No concerns reported THRIVE Score: 0 AUDIT C Alcohol Use Questionnaire (AUDIT-C) 1. How often do you have a drink containing alcohol?: Never 3. How often do you have six or more drinks on one occasion?: Never Total Score: 0 STEPHEN-7 AMB Questionnaire STEPHEN-7 Date STEPHEN - 7 assessed: 04/10/24 Feeling nervous, anxious, or on edge: 0 = Not at all Not being able to stop or control worryin = Not at all Worrying too much about different things: 0 = Not at all Trouble relaxin = Not at all Being so restless that it is hard to sit still: 0 = Not at all Becoming easily annoyed or irritable: 0 = Not at all Feeling afraid as if something awful might happen: 0 = Not at all Total STEPHEN-7 score (0-4 normal; 5-9 mild; 10-14 moderate; 15-21 severe): 0 Source: Developed by Drs. Fan Fitzpatrick, Saranya Dorantes, Simón Russo and colleagues, with an educational alana from [employer]. STEPHEN-7 Assessment Billing STEPHEN-7 Assessment Tool: STEPHEN-7 Assessment 60761 Physical exam (Primary Care) Vital Signs: Last Vital Signs Temp 96.8 F 04/10/24 13:01 Pulse 92 04/10/24 13:01 BP 112/64 04/10/24 13:01 Pulse Ox 95 04/10/24 13:01 Oxygen Delivery Method Room Air 04/10/24 13:01 BMI result Body Mass Index 40.4 Tobacco/Smoking Status: Tobacco use Status Tobacco use date assessed 04/10/24 04/10/24 12:59 Patient Tobacco Use Status Former Tobacco user 04/10/24 12:59 Tobacco use type Cigarette 04/10/24 12:59 e-Cigarette/Vaping Use Never Used 04/10/24 12:59 PHQ-9: PHQ-9 Score PHQ-9: Total score 0 04/10/24 13:09 Depression Screening Interpretation: Negative Thrive Assessment: Date of Thrive Assessment Date Thrive assessed 04/10/24 04/10/24 12:59 Currently or been in a relationship where the following occur: No concerns reported Const General: alert; No acute distress Eyes Conjunctivae: conjunctivae normal Resp Auscultation: clear to auscultation bilaterally Cardio Rate: regular rate Rhythm: regular rhythm GI Inspection: Yes normal to inspection Extrem General: Yes normal to inspection and No edema Coding Level of Care Code Est Pt Level 4 (92494) Complex EM visit Add On G2211 Diagnoses Morbid obesity E66.01 Type 2 diabetes mellitus with hyperglycemia, without long-term current use of insulin E11.65 Diabetes mellitus mcc insulin use: without mcc use Essential hypertension I10 Hypertension type: essential hypertension Hypercholesterolemia E78.00 Generalized anxiety disorder F41.1 Degenerative disc disease, lumbar M51.36 Additional Codes STEPHEN-7 Assessment Billing - STEPHEN-7 Assessment Tool: STEPHEN-7 Assessment 30491 ([id number]) PHQ-9 - 89559 - PHQ-9 Billing: Yes ([id number]) Assessment & Plan Assessment & Plan (1) Morbid obesity: Code(s): E66.01 - Morbid (severe) obesity due to excess calories Category: Medical Plan: Diet and exercise (2) Type 2 diabetes mellitus with hyperglycemia: Comment: eye [place] [facility] Code(s): E11.65 - Type 2 diabetes mellitus with hyperglycemia Category: Medical Qualifiers: Diabetes mellitus mcc insulin use: without tank terminal gauger use Qualified Code(s): E11.65 - Type 2 diabetes mellitus with hyperglycemia Plan: Decrease the amount of carbohydrate intake, pasta, bread, rice and potatoes are all sugar and that is aside from all the sweet stuff, remember that fruits are good but they are Sweet also. Hemoglobin A1c goal of less than 7.0 on metformin a 1000 mg twice a day patient has been started on Zetia but concerns about insurance coverage patient on Jardiance 25 mg once a day (3) Hypertension: Code(s): I10 - Essential (primary) hypertension Category: Medical Qualifiers: Hypertension type: essential hypertension Qualified Code(s): I10 - Essential (primary) hypertension Plan: Continue with blood pressure medication. Decrease salt intake and exercise on lisinopril 20 mg once a day (4) Hypercholesterolemia: Code(s): E78.00 - Pure hypercholesterolemia, unspecified Category: Medical Plan: Avoid fried foods, chicken skin, eggs, butter margarine, pastries and meat. Be it pork or beef they have a lot of cholesterol LDL goal of less than 100 and triglyceride of less than 150 on simvastatin 20 mg at bedtime. Patient needs to have blood working by May (5) Generalized anxiety disorder: Comment: decline counselling 02/2021 Code(s): F41.1 - Generalized anxiety disorder Category: Medical Plan: Continue with present medication (6) Degenerative disc disease, lumbar: Code(s): M51.36 - Other intervertebral disc degeneration, lumbar region Category: Medical Plan: Narcotic pain meds: Is being prescribed with the understanding that these medications are potentially addictive and should be used only when absolutely necessary and must always be secured. Any remaining pills should be safely disposed off appropriately. Patient is advised that narcotics can impaired judgment and one should not drive or operate heavy machinery while taking these medications. Never share these medications with anybody and do not leave them unattended. They will not be replaced under any circumstances. Plan - Continue current diabetes management with metformin 1000 mg twice daily and Jardiance 25 mg once daily; monitor effectiveness and adjust as necessary. - Address concerns with insurance coverage for terzepidide; explore alternatives if coverage is not resolved. - Maintain blood pressure control on lisinopril 20 mg once daily; monitor blood pressure regularly to ensure control. - Continue cholesterol management with simvastatin 20 mg at bedtime; aim to maintain LDL cholesterol levels under 100 mg/dL and triglycerides under 150 mg/dL. - Schedule follow-up blood work by May to monitor diabetes control and electrolyte balance. - Continue to manage asthma and generalized anxiety disorder with current medications and provide support for obstructive sleep apnea given intolerance to CPAP. Orders: Orders AMB Hemoglobin A1c Today E11.65 - Type 2 diabetes mellitus with hyperglycemia Complete Blood Count Auto Diff 3 Months E11.65 - Type 2 diabetes mellitus with hyperglycemia Free T4 (Free Thyroxine) 3 Months E11.65 - Type 2 diabetes mellitus with hyperglycemia Lipid Panel 3 Months E11.65 - Type 2 diabetes mellitus with hyperglycemia, E78.00 - Pure hypercholesterolemia, unspecified Vitamin B12 and Folate 3 Months E11.65 - Type 2 diabetes mellitus with hyperglycemia Creatinine Urine 3 Months E11.65 - Type 2 diabetes mellitus with hyperglycemia Hemoglobin A1c 3 Months E11.65 - Type 2 diabetes mellitus with hyperglycemia Comprehensive Met. Panel 3 Months E11. - Type 2 diabetes mellitus with hyperglycemia Thyroid Stimulating Hormone 3 Months E11.65 - Type 2 diabetes mellitus with hyperglycemia Microalbumin, Random (w Creat) 3 Months E11.65 - Type 2 diabetes mellitus with hyperglycemia
[2024-04-10 13:01] VITALS: BP 112/64; PULSE 92; TEMP 36; O2SAT 95; BMI 40.4
--- OUTSIDE RECORDS SUMMARY | 2024-04-10 13:35 | XMS_ITS | Clinical Summary ---
Author Organization [facility] Address [phone] [facility] [place] [address] Care Team Providers Care Tube Builder Name Role Phone Pcp, Unknown Primary Care Provider Unavailabl e Immunizations Name Administration Dates Next Due COVID-19 (Pre-12/11) Pfizer Vaccine, mRNA, PF ,03/24/2020 Social History Tobacco Use Types Packs/Day Years Used Date Smoking Tobacco: Never Assessed Education Answer Date Recorded Are you interested in more education? Not on jessica e 06/16/2022 Are you concerned about learning? Not on file 06/16/2022 No 06/16/2022 No 06/16/2022 Digital Access Answer Date Recorded No 07/15/2022 No 07/15/2022 No 07/15/2022 Reliable internet access at home? Not on file 07/15/2022 Device with a working camera? Not on file Sex and Gender Information Value Date Recorded Sex Assigned at Not on file Gender Identity Not on file Sexual Orientation Not on file Plan of Treatment Health Maintenance Due Date Last Done Comments LIPID PANEL 1945 DEPRESSION SCREENING 1955 SMOKING Hx and SMOKELESS TOBACCO SCREENING 09/18/1956 HEPATITIS B SCREENING 09/18/1961 ZOSTER VACCINES (1 of 2) 09/18/1993 RSV VACCINE (1 - 1-dose 75+ series) 09/18/2018 PNEUMOCOCCAL VACCINES (50+ years) (2 of 2 - PCV) 02/29/2020 02/28/2019 INFLUENZA VACCINE (#1) 2023 0, 12/06/2018, 11/02/2017, Additional history exists COVID-19 VACCINE (3 - season) 2023 04/14/2020, 03/24/2020 Adult Td,Tdap Booster 01/19/2029 01/19/2019 HEPATITIS A VACCINES Aged Out No long er eligible based on patient's age to complete this topic HEPATITIS B VACCINES Aged Out No long er eligible based on patient's age to complete this topic HIB VACCINES Aged Out No longer eligi ble based on patient's age to complete this topic MENINGOCOCCAL VACCINES (ACWY) Aged Out No longer eligible based on patient's age to complete this topic Medical Devices Not on file Care Teams Tube Builder Relationship Specialty Start Date End Date Pcp, Unknown PCP - General 08/25/21 Additional Source Comments The information contained in this document represents components of the legal health record. It is not the complete legal health record.[facility]
== END 2024-04-10 13:29 | disposition home or self-care (01) ==
PROVIDERS: PCP Internal Medicine; Visit Provider Internal Medicine
DX: I10 Essential (primary) hypertension (principal); E66.01 Morbid (severe) obesity due to excess calories; E11.65 Type 2 diabetes mellitus with hyperglycemia; Z68.41 Body mass index [BMI] 40.0-44.9, adult; E78.00 Pure hypercholesterolemia, unspecified; F41.1 Generalized anxiety disorder; M51.369 Other intervertebral disc degeneration, lumbar region without mention of lumbar back pain or lower extremity pain

== ENCOUNTER → 2024-04-10 12:39 | Outpatient (BNVA) | payer MEDICARE, MEDICAID, SELFPAY | PROVIDERS: PCP Internal Medicine; Visit Provider Internal Medicine | DX: E66.01 Morbid (severe) obesity due to excess calories (principal); E11.65 Type 2 diabetes mellitus with hyperglycemia; E78.00 Pure hypercholesterolemia, unspecified; I10 Essential (primary) hypertension; F41.1 Generalized anxiety disorder; M51.369 Other intervertebral disc degeneration, lumbar region without mention of lumbar back pain or lower extremity pain | CPT/HCPCS: 83036; 96127; 99212 ==

== ENCOUNTER 2024-06-30 06:21 | Outpatient (REF) | payer MEDICARE, MEDICAID, SELFPAY ==
--- OUTSIDE RECORDS SUMMARY | 2024-06-30 06:32 | XMS_ITS | Clinical Summary ---
Author Organization [facility] Address [address] [place] [phone] Phone Care Team Providers Care Political Aide Name Role Phone Pcp, Unknown Primary Care Provider Unavailabl e Immunizations Immunization Administration Dates Next Due COVID-19 (Pre-12/11) Pfizer [...] Recorded Sex Assigned at Not on file Legal Sex Male 11:15 AM EST Gender Identity Not on file Sexual Orientation [...] 12/06/2018, 11/02/2017, Additional history exists COVID-19 VACCINE ( season) 2023 04/14/2020, 03/24/2020 Adult Td,Tdap Booster [...] this topic Medical Devices Not on file Insurance MEDICARE PART A & B [facility] MEDICARE PART A & [place] HEALTH MEDICARE PART A & [place] [facility] [place]IC[place] [facility] MED[facility] PART A & B Care Teams Political Aide Relationship Specialty Start Date End Date Pcp, Unknown PCP - General 08/25/21 Additional Source Comments The information contained in this document represents components of the legal health record. It is not the complete legal health record.[facility]
[2024-06-30 10:03] LABS: MANUAL DIFF FLAG NO
[2024-06-30 10:17] LABS: Basophils Absolute Auto 0.1 X10*3/uL (0.0-0.2); Basophils Percent Auto 1.1 % (0-2); Eosinophils Absolute Auto 0.9 X10*3/uL (0.0-0.4); Eosinophils Percent Auto 9.1 % (0-4); Hemoglobin 15.9 g/dl (14.0-18.0); Imm Gran Abs Auto 0.02 X10*3/uL (0.00-0.03); Imm Gran Pct Auto 0.2 % (0.0-0.4); Lymphocytes Absolute Auto 2.3 X10*3/uL (1.2-4.9); Lymphocytes Percent Auto 22.4 % (20-40); Mean Corpuscular HGB Conc 32.4 g/dl (31.0-36.0); Mean Corpuscular Hemoglobin 30.9 pg (27.0-33.0); Mean Corpuscular Volume 95.3 fL (80.0-98.0); Mean Platelet Volume 10.2 fL (9.4-12.4); Monocytes Absolute Auto 0.8 X10*3/uL (0.1-1.2); Monocytes Percent Auto 8.1 % (2-11); Neutrophils Absolute Auto 6.1 x10*3/uL (2.0-8.3); Neutrophils Percent Auto 59.1 % (45-73); Platelet Count 240 X10*3/uL (160-400); Red Blood Count 5.14 X10*6/uL (4.60-5.80); Red Cell Distribution Width 13.5 % (11.0-16.0); White Blood Count 10.3 X10*3/uL (4.8-10.8)
[2024-06-30 10:50] LABS: Microalbum/Creatinine Ratio Ur 10.2 ug/mg cr (<30)
[2024-06-30 10:55] LABS: Alanine Aminotransferase 15 U/L (0-40); Albumin Level 4.3 g/dL (3.5-5.0); Alkaline Phosphatase 73 U/L (39-117); Anion Gap 13 (12-20); Aspartate Amino Transferase 23 U/L (5-37); Bilirubin Total 1.2 mg/dL (0.0-1.0); Blood Urea Nitrogen 18 mg/dL (9-16); Calcium 9.7 mg/dL (8.4-10.2); Carbon Dioxide 28 mmol/L (22-29); Chloride 103 mmol/L (96-108); Cholesterol 151 mg/dL (<200); Estimated Glomerular Filt Rate > 60; Free T4 (Free Thyroxine) 0.99 ng/dL (0.71-1.85); Glucose Random 131 mg/dL (60-115); HDL Cholesterol 38 mg/dL (>40); LDL Cholesterol Calculated 88 mg/dL (<100); Potassium 4.2 mmol/L (3.3-5.1); Sodium 140 mmol/L (135-145); Thyroid Stimulating Hormone 2.23 uIU/mL (0.32-4.0); Total Protein 7.3 g/dL (6.5-8.0); Triglycerides 127 mg/dL (<150)
[2024-06-30 11:09] LABS: Folate 13.9 ng/mL (> or = 4.0); Vitamin B12 695 pg/mL (200-900)
[2024-06-30 11:24] LABS: Estimated Average Glucose 137 mg/dL; Hemoglobin A1C 185.9918 umol/L; Hemoglobin A1c % 6.4 % (<6.0); Total Hemoglobin (HGBA1C) 4049.3638 umol/L
== END 2024-06-30 06:22 | disposition home or self-care (01) ==
LOC: HO.HMGCLDS 06:21
PROVIDERS: PCP Internal Medicine; Visit Provider Internal Medicine
DX: E11.65 Type 2 diabetes mellitus with hyperglycemia (principal); E78.00 Pure hypercholesterolemia, unspecified
CPT/HCPCS: 36415; 80053; 80061; 82043; 82570; 82607; 82746; 83036; 84439; 84443; 85025

== ENCOUNTER 2024-07-05 10:42 | Emergency (ER) | payer MEDICARE, MEDICAID, SELFPAY ==
--- NOTE | ~2024-07-05 | XR_ITS ---
CLINICAL HISTORY: cough 2 view chest x-ray Comparison: None Findings: Small right medial basilar atelectasis/infiltrate. Increased subpleural right lower lobe reticular markings. 8 mm lung nodule versus clavicular sclerotic focus projecting over the right upper hemithorax could be further evaluated with a nonemergent chest CT. Mild bilateral lateral pleural thickening. Heart size is normal. No acute fracture. Focal small calcification projecting over the left acromiohumeral interspace may be dystrophic or secondary to calcium deposition disease. IMPRESSION: Small right medial basilar atelectasis/infiltrate. 8 mm lung nodule versus clavicular sclerotic focus projecting over the right upper hemithorax could be further evaluated with a nonemergent chest CT. This document has been electronically signed by: Shavon Hudson MD on 07/05/2024 12:26:13
[2024-07-05 10:58] VITALS: BP 136/78; PULSE 92; RESP 18; TEMP 36.1; O2SAT 97; BMI 42.4
--- OUTSIDE RECORDS SUMMARY | 2024-07-05 11:21 | XMS_ITS | Clinical Summary ---
Author Organization [facility] Address [address] [place] [phone] Phone Care Team Providers Care Trading Assistant Name Role Phone Pcp, Unknown Primary Care [...] file Insurance MEDICARE PART A & B [facility] MEDICARE PART A & [place] HEALTH MEDICARE PART A & [place] [facility] [place] [facility] B Care Teams Trading Assistant Relationship Specialty Start Date End Date Pcp, Unknown PCP - General 08/25/21 Additional Source Comments The information contained in this document represents components of the legal health record. It is not the complete legal health record.[facility]
[2024-07-05 11:28] LABS: Basophils Absolute Auto 0.1 X10*3/uL (0.0-0.2); Basophils Percent Auto 0.5 % (0-2); Eosinophils Absolute Auto 0.6 X10*3/uL (0.0-0.4); Eosinophils Percent Auto 2.8 % (0-4); Hematocrit 46.5 % (42.0-52.0); Hemoglobin 15.7 g/dl (14.0-18.0); Imm Gran Abs Auto 0.06 X10*3/uL (0.00-0.03); Imm Gran Pct Auto 0.3 % (0.0-0.4); Lymphocytes Absolute Auto 2.3 X10*3/uL (1.2-4.9); Lymphocytes Percent Auto 11.8 % (20-40); MANUAL DIFF FLAG SCAN; Mean Corpuscular HGB Conc 33.8 g/dl (31.0-36.0); Mean Corpuscular Hemoglobin 31.3 pg (27.0-33.0); Mean Corpuscular Volume 92.8 fL (80.0-98.0); Mean Platelet Volume 9.5 fL (9.4-12.4); Monocytes Absolute Auto 1.7 X10*3/uL (0.1-1.2); Monocytes Percent Auto 8.8 % (2-11); Neutrophils Absolute Auto 14.7 x10*3/uL (2.0-8.3); Neutrophils Percent Auto 75.8 % (45-73); Platelet Count 210 X10*3/uL (160-400); Red Blood Count 5.01 X10*6/uL (4.60-5.80); Red Cell Distribution Width 13.5 % (11.0-16.0); SCAN SMEAR FLAG 1; White Blood Count 19.4 X10*3/uL (4.8-10.8)
[2024-07-05 11:43] LABS: Alanine Aminotransferase 13 U/L (0-40); Albumin Level 4.2 g/dL (3.5-5.0); Alkaline Phosphatase 82 U/L (39-117); Anion Gap 16 (12-20); Aspartate Amino Transferase 19 U/L (5-37); Bilirubin Total 1.3 mg/dL (0.0-1.0); Blood Urea Nitrogen 13 mg/dL (9-16); Carbon Dioxide 24 mmol/L (22-29); Chloride 105 mmol/L (96-108); Creatinine Clr Calc Pharmacy 101.5; Estimated Glomerular Filt Rate > 60; Glucose Random 119 mg/dL (60-115); Potassium 4.2 mmol/L (3.3-5.1); Sodium 141 mmol/L (135-145); Total Protein 7.5 g/dL (6.5-8.0)
[2024-07-05 11:56] LABS: SLIDE REVIEW VERIFIED
[2024-07-05 12:05] LABS: Influenza A PCR NEGATIVE (Negative); Influenza B PCR NEGATIVE (Negative); Resp Syncy Virus RNA Qual PCR NEGATIVE (Negative); SARS COV2 PCR INHOUSE NEGATIVE (Negative)
--- NOTE | 2024-07-05 12:43 | ED_ITS ---
HPI - URI/Sore Throat General Chief Complaint: Upper Respiratory Symptoms Stated Complaint: Chest congestion, sciatic pain Time Seen by Provider: 07/05/24 12:35 Source: patient Mode of arrival: ambulatory Limitations: no limitations History of Present Illness ED Provider: Dr. Rico Funes yes HPI Narrative: 78-year-old male with a history of diabetes mellitus, hypertension, hyperlipidemia, asthma, anxiety, obstructive sleep apnea who presents emergency department for evaluation of chest congestion, nonproductive cough, shortness of breath x3 days and left hip /leg pain x2 days. Patient states that he has had a nonproductive cough for 3 days. He states that he feels short of breath when he walks around but not at rest. He states that yesterday when he got a bed he developed pain in his left hip and the pain radiates to the back in his leg to his calf. He denies any numbness or weakness of the lower extremities. He denied any loss of bowel or bladder control. He denied lower back pain. He states that in the past he was told that he had disc disease at L3-L4. He denied fever, chills, rhinorrhea, sore throat, nausea, vomiting, diarrhea. Related Data Previous Rx's ?Medication ?Instructions ?Recorded nebulizer #1 ea 03/12/20 albuterol sulfate 2.5 mg/3 mL 2.5 mg (3 mL) inhalation QID PRN 05/12/21 (0.083 %) solution for nebulization shortness of breath or wheezing #180 mL albuterol sulfate 90 mcg/actuation 2 puff PO Q4-6H PRN for muscle 11/13/22 aerosol inhaler spasm #8.5 ea fluticasone propionate 220 2 puff inhalation BID #3 ea 05/12/23 mcg/actuation HFA aerosol inhaler blood sugar diagnostic (OneTouch #100 ea 07/13/23 Ultra Test strips) blood-glucose meter #1 ea 07/13/23 lisinopril 20 mg tablet 20 mg PO DAILY #90 tabs 08/13/23 simvastatin 20 mg tablet 20 mg PO BEDTIME #90 tabs 08/13/23 gabapentin 300 mg capsule 300 mg PO BEDTIME #90 caps 09/11/23 paroxetine HCl 20 mg tablet 20 mg PO QAM #90 tabs 12/05/23 metformin 1,000 mg tablet 1,000 mg PO BID #180 tabs 01/03/24 fluticasone propionate 50 1 spray intranasal DAILY #48 mL 02/27/24 mcg/actuation nasal spray,suspension empagliflozin 25 mg tablet 25 mg PO DAILY #90 tabs 05/23/24 tirzepatide 5 mg/0.5 mL 5 mg (0.5 mL) subcut QWEEK #2 mL 06/23/24 subcutaneous pen injector oxycodone-acetaminophen 5 mg-325 1 tab PO TID PRN pain #90 tabs 07/02/24 mg tablet (Percocet) doxycycline hyclate 100 mg tablet 100 mg PO Q12H 10 days #7 tabs 07/05/24 prednisone 20 mg tablet 40 mg (2 x 20 mg) PO DAILY 5 days 07/05/24 #10 tabs Allergies Allergy/AdvReac Type Severity Reaction Status Date / Time semaglutide Allergy Intermediate nausea and Verified 07/05/24 11:01 vomiting and diarrhea Review of Systems 2 Review of Systems: Yes all other systems are reviewed and are negative [facility] Past Medical History [facility] Narrative: Social history: The patient is a former smoker and states he stopped smoking 10 years prior. The patient states that he smoked 2 packs of cigarettes per day times 30 years. He denies drug use. He denies alcohol use. Medical History (Updated 07/05/24 @ 13:14 by Rico Funes MD) Colon cancer screening Peripheral neuropathy Umbilical hernia Herniated intervertebral disc of lumbar spine Type 2 diabetes mellitus with hyperglycemia Hypercholesterolemia Gout Degenerative disc disease, lumbar Anxiety and depression Obesity Obstructive sleep apnea Hypertension Asthma Surgical History History of nasal surgery Family History Family History Father No problems noted. Mother No problems noted. Social History Social History Housing: Assisted Living Facility Alcohol intake: former Patient Tobacco Use Status: Former Tobacco user Tobacco use type: Cigarette e-Cigarette/Vaping Use: Never Used Second Hand Smoke Exposure: No service: No Current occupational status: disabled Cognitive needs: No Hearing needs: Yes Vision needs: Yes Physical Exam 2 Vital Signs: Vital Signs: Last Vital Signs Temp 97 F 07/05/24 10:58 Pulse 94 07/05/24 13:07 Resp 18 07/05/24 13:07 BP 132/62 07/05/24 13:07 Pulse Ox 90 L 07/05/24 13:07 O2 Del Method Room Air 07/05/24 13:07 BMI result Body Mass Index 42.4 O2 saturation was 90% on room air otherwise vital signs were normal. Exam: General: Awake, alert in no distress, weight 134.2 kg, elevated BMI 42.5 kg per m2 Head: Normocephalic, atraumatic EENT: PERRL, Lids normal, sclera normal, conjunctiva normal, nose normal , ears normal, throat without erythema or exudates Neck: Supple, no adenopathy Lung: breath sounds symmetric, no wheezing, rales or rhonchi Chest: symmetric movement, nontender Heart: regular rate and rhythm, normal S1, S2 no murmurs or rubs Abdomen: soft, non-tender, nondistended, normal bowel sounds Back: no vertebral tenderness, no tenderness or spasm of the paraspinal muscles in the lumbar sacral area. Negative straight leg raises bilaterally Extremities: no deformities, moves all extremities symmetrically Neuro: Awake, alert, oriented, normal speech, cranial nerves intact, moves all extremities symmetrically Psych: Pleasant, cooperative Medical Decision Making Medical Decision Making MDM Narrative: 78-year-old male with a history of diabetes mellitus, hypertension, hyperlipidemia, asthma, anxiety, obstructive sleep apnea who presents emergency department for evaluation of chest congestion, nonproductive cough, shortness of breath x3 days and left hip /leg pain x2 days. Patient states that he has had a nonproductive cough for 3 days. He states that he feels short of breath when he walks around but not at rest. He states that yesterday when he got a bed he developed pain in his left hip and the pain radiates to the back in his leg to his calf. He denies any numbness or weakness of the lower extremities. He denied any loss of bowel or bladder control. He denied lower back pain. He states that in the past he was told that he had disc disease at L3-L4. Vital signs revealed an O2 saturation of 90% on room air otherwise were unremarkable. Physical examination was otherwise unremarkable as well, he has no tenderness palpation over the paraspinal muscles in the lumbar sacral area in his negative straight leg raises bilaterally. Differential diagnosis: ?Includes but is not limited to COVID-19, influenza, RSV, pneumonia, bronchitis, pulmonary edema, lumbar sacral muscles brain/strain, sciatica, degenerative disc disease, degenerative joint disease, anemia, electrolyte abnormalities Course: 13:28 My interpretation patient's laboratory evaluation is as follows: [place] [address]. Elevated glucose 119. Elevated total bilirubin 1.3. COVID-19, influenza and RSV tests were negative. Patient's chest x-ray did not reveal any acute infiltrates, radiologist did note an 8 mm pulmonary nodule in the right upper lobe. Given the patient's long history of smoking and possible lung disease, he is at increased risk for bacterial infections therefore he will be treated for acute bacterial bronchitis with doxycycline 100 mg q.12 hours x7 days. The patient's left hip and left leg pain is consistent with lumbar radiculopathy. Patient does take Percocet already for chronic pain therefore he was treated with prescription for prednisone 40 mg once a day for 5 days Admission/Observation Consideration of admission/observation: Escalation of care including admission/observation considered (Yes) Lab Data [facility] Lab Attestation statement: I reviewed the patient's lab results. 07/05/24 11:21 07/05/24 11:21 Labs: Lab Results 07/05/24 Range/Units 11:21 WBC 19.4 H (4.8-10.8) X10*3/uL RBC 5.01 (4.60-5.80) X10*6/uL Hgb 15.7 (14.0-18.0) g/dl Hct 46.5 (42.0-52.0) % MCV 92.8 (80.0-98.0) fL MCH 31.3 (27.0-33.0) pg MCHC 33.8 (31.0-36.0) g/dl RDW 13.5 (11.0-16.0) % Plt Count 210 (160-400) X10*3/uL MPV 9.5 (9.4-12.4) fL Immature Gran % (Auto) 0.3 (0.0-0.4) % Neut % (Auto) 75.8 H (45-73) % Lymph % (Auto) 11.8 L (20-40) % [place] % (Auto) 8.8 (2-11) % Eos % (Auto) 2.8 (0-4) % Baso % (Auto) 0.5 (0-2) % Lymph # (Auto) 2.3 (1.2-4.9) X10*3/uL [place] # (Auto) 1.7 H (0.1-1.2) X10*3/uL Eos # (Auto) 0.6 H (0.0-0.4) X10*3/uL Baso # (Auto) 0.1 (0.0-0.2) X10*3/uL Abs Immat Gran (auto) 0.06 H (0.00-0.03) X10*3/uL Absolute Neuts (auto) 14.7 H (2.0-8.3) x10*3/uL Absolute Nucleated RBC 0.000 (0.0-0.012) X10*3/uL Nucleated RBC % (auto) 0.0 (0.0-0.2) /100WBC Smear Tech's Comments VERIFIED Sodium 141 (135-145) mmol/L Potassium 4.2 (3.3-5.1) mmol/L Chloride 105 (96-108) mmol/L Carbon Dioxide 24 (22-29) mmol/L Anion Gap 16 (12-20) BUN 13 (9-16) mg/dL Creatinine 0.80 (0.5-1.4) mg/dL Estim Creat Clear Calc 101.5 Estimated GFR > 60 Random Glucose 119 H (60-115) mg/dL Calcium 10.0 (8.4-10.2) mg/dL Total Bilirubin 1.3 H (0.0-1.0) mg/dL AST 19 (5-37) U/L ALT 13 (0-40) U/L Alkaline Phosphatase 82 (39-117) U/L Total Protein 7.5 (6.5-8.0) g/dL Albumin 4.2 (3.5-5.0) g/dL Influenza Type A (PCR) NEGATIVE (Negative) Influenza Type B (PCR) NEGATIVE (Negative) RSV RNA Qual (PCR) NEGATIVE (Negative) SARS-CoV-2 RNA (RT-PCR) NEGATIVE (Negative) Independent Interpretation I performed an independent interpretation of an: Plain X-Ray Interpretation: My interpretation of the patient's one-view chest x-ray is as follows: No acute infiltrates Prescription Management I considered prescription management with: Antibiotic (Doxycycline) and Other (Anti-inflammatory steroids: Prednisone) Chronic Conditions Patient?s care impacted by: Diabetes, Hypertension and Other (Asthma) Discharge Plan Discharge Clinical Impression: Acute bronchitis, Acute left lumbar radiculopathy Patient Disposition: Home, Self-Care Instructions: Acute Bronchitis (ED), Acute Low Back Pain (ED) Additional Instructions: Your blood work revealed an elevated white blood cell count which can be consistent with an infection. Your chest x-ray did not reveal any pneumonia but your symptoms are concerning for bronchitis. Given your previous smoking history, I am going to treat your bronchitis with an antibiotic called doxycycline. Take doxycycline 100 mg pills, 1 pill every 12 hours for 7 days. Your left hip and left leg pain pain is consistent with lumbar radiculopathy and not sciatica (sciatica is usually worse with lifting both legs). This is treated with pain medications and anti-inflammatory steroids. Take prednisone 20 mg pills, 2 pills once a day for 5 days. While you ?are taking prednisone, do not take any NSAIDs (Motrin, Advil, ibuprofen, Aleve, naproxen). Continue taking your Percocet got as prescribed by your provider for your pain. The radiologist did note an 8 mm nodule in your right upper lobe and the radiologist recommended getting an outpatient CT scan of your chest with close follow-up. I want you to follow-up with your doctor, Dr. Mcrae in 1-2 weeks for follow-up and to discuss the radiologist's recommendation. Radiology reading is below in you can show this to your doctor at your follow-up visit. Please return to the emergency department if your symptoms get worse or if you develop any symptoms that are concerning to you. 2 view chest x-ray Comparison: None Findings: Small right medial basilar atelectasis/infiltrate. Increased subpleural right lower lobe reticular markings. 8 mm lung nodule versus clavicular sclerotic focus projecting over the right upper hemithorax could be further evaluated with a nonemergent chest CT. Mild bilateral lateral pleural thickening. Heart size is normal. No acute fracture. Focal small calcification projecting over the left acromiohumeral interspace may be dystrophic or secondary to calcium deposition disease. IMPRESSION: Small right medial basilar atelectasis/infiltrate. 8 mm lung nodule versus clavicular sclerotic focus projecting over the right upper hemithorax could be further evaluated with a nonemergent chest CT. This document has been electronically signed by: Shavon Hudson MD on 07/05/2024 12:26:13 Prescriptions: New prednisone 20 mg tablet 40 mg PO DAILY 5 Days Qty: 10 0RF doxycycline hyclate 100 mg tablet 100 mg PO Q12H 10 Days Qty: 7 0RF No Action albuterol sulfate 2.5 mg /3 mL (0.083 %) solution for nebulization 2.5 mg inhalation QID PRN (Reason: shortness of breath or wheezing) Qty: 180 2RF albuterol sulfate 90 mcg/actuation HFA aerosol inhaler 2 puff PO Q4-6H PRN (Reason: for muscle spasm) Qty: 8.5 3RF Flovent HFA 220 mcg/actuation HFA aerosol inhaler 2 puff inhalation BID Qty: 3 3RF lisinopril 20 mg tablet 20 mg PO DAILY Qty: 90 3RF simvastatin 20 mg tablet 20 mg PO BEDTIME Qty: 90 3RF gabapentin 300 mg capsule 300 mg PO BEDTIME Qty: 90 3RF paroxetine HCl 20 mg tablet 20 mg PO QAM Qty: 90 2RF metformin 1,000 mg tablet 1,000 mg PO BID Qty: 180 3RF fluticasone propionate 50 mcg/actuation spray,suspension 1 spray intranasal DAILY Qty: 48 8RF empagliflozin 25 mg tablet 25 mg PO DAILY Qty: 90 3RF tirzepatide 5 mg/0.5 mL pen injector 5 mg subcut QWEEK Qty: 2 3RF oxycodone-acetaminophen [Percocet] 5-325 mg tablet 1 tab PO TID PRN (Reason: pain) Qty: 90 0RF (DME) nebulizer See Rx Instructions .Route .MEDSUPPLY Qty: 1 0RF Rx Instructions: As directed ([facility]) blood-glucose meter Kit See Rx Instructions .ROUTE .MEDSUPPLY Qty: 1 0RF Rx Instructions: As directed check the blood sugar once a day (DME) OneTouch Ultra Test Strip See Rx Instructions .ROUTE .MEDSUPPLY Qty: 100 3RF Rx Instructions: As directed check the blood sugar once a day Print Language: Amharic
[2024-07-05 13:07] VITALS: BP 132/62; PULSE 94; RESP 18; O2SAT 90
[2024-07-05 13:22] VITALS: BP 132/62; PULSE 94; RESP 18; TEMP 36.6; O2SAT 90
== END 2024-07-05 13:28 | disposition home or self-care (01) ==
PROVIDERS: Emergency Provider Emergency Medicine Emergency Medical Services; PCP Internal Medicine
DX: J20.9 Acute bronchitis, unspecified (principal); M54.16 Radiculopathy, lumbar region; R05.9 Cough, unspecified; E11.9 Type 2 diabetes mellitus without complications; I10 Essential (primary) hypertension; E78.5 Hyperlipidemia, unspecified; Z03.818 Encounter for observation for suspected exposure to other biological agents ruled out
CPT/HCPCS: 0241U; 71046; 80053; 85025; 99283; 99284

== ENCOUNTER → 2024-07-05 11:30 | Outpatient (BNV) | payer MEDICARE, MEDICAID, SELFPAY | PROVIDERS: Emergency Provider Emergency Medicine Emergency Medical Services; PCP Internal Medicine; Visit Provider Radiology Diagnostic Radiology | DX: J98.11 Atelectasis (principal) | CPT/HCPCS: 71046 ==

== ENCOUNTER 2024-07-15 12:12 | Outpatient (AMB) | payer MEDICARE, MEDICAID, SELFPAY ==
--- NOTE | 2024-07-15 12:17 | MHC.PC.OV ---
Vital Signs 07/15/24 12:18 Height 5 ft 10 in Weight 291 lb BMI 41.7 BP 122/68 Blood Pressure Location Lt brachial Position Sitting Pulse 120 H Pulse Source Pulse Oximeter Pulse Oximetry (%) 97 Oxygen Delivery Method Room Air Intake Visit Reasons: dm Allergies semaglutide Allergy (Intermediate, Verified 07/15/24 12:18) nausea and vomiting and diarrhea Medication List - Last Reconciled 07/15/24 by Wendy Mcrae MD albuterol sulfate 2.5 mg (3 mL) inhalation QID PRN albuterol sulfate 90 mcg/actuation 2 puffs PO Q4-6H PRN blood sugar diagnostic (Insync Systemsuch Ultra Test strips) As directed check the blood sugar once a day blood-glucose meter As directed check the blood sugar once a day empagliflozin 25 mg PO DAILY fluticasone propionate 220 mcg/actuation 2 puffs inhalation BID fluticasone propionate 50 mcg/actuation 1 spray intranasal DAILY gabapentin 300 mg PO BEDTIME lisinopril 20 mg PO DAILY metformin 1,000 mg PO BID [nebulizer As directed] oxycodone-acetaminophen 5-325 mg (Percocet) 1 tab PO TID PRN paroxetine HCl 20 mg PO QAM simvastatin 20 mg PO BEDTIME tirzepatide 5 mg (0.5 mL) subcut QWEEK Tobacco use date assessed: 04/10/24 Fall risk assessment: No Falls in past year Last assessed Fall Risk: 07/15/24 Dental Screening Dental Screen Date: 04/10/24 [facility] Medical History (Updated 07/15/24 @ 12:37 by Wendy Mcrae MD) Obesity Colon cancer screening Peripheral neuropathy Umbilical hernia Herniated intervertebral disc of lumbar spine Type 2 diabetes mellitus with hyperglycemia Hypercholesterolemia Gout Degenerative disc disease, lumbar Anxiety and depression Obstructive sleep apnea Hypertension Asthma Surgical History History of nasal surgery Family History Father No problems noted. Mother No problems noted. Social History Housing: Assisted Living Facility Alcohol intake: former Patient Tobacco Use Status: Former Tobacco user Tobacco use type: Cigarette e-Cigarette/Vaping Use: Never Used Second Hand Smoke Exposure: No service: No Current occupational status: disabled Cognitive needs: No Hearing needs: Yes Vision needs: Yes Questionnaire PHQ-9 Over the last 2 weeks, how often have you been bothered by any of the following problems? 1. Little interest or pleasure in doing things: more than half the days 2. Feeling down, depressed, or hopeless: more than half the days 3. Trouble falling or staying asleep, or sleeping too much: more than half the days 4. Feeling tired or having little energy: not at all 5. Poor appetite or overeating: not at all 6. Feeling bad about yourself - or that you are a failure or have let yourself or your family down: not at all 7. Trouble concentrating on things, such as reading the newspaper or watching television: not at all 8. Moving or speaking so slowly that other people could have noticed. Or the opposite - being so fidgety or restless that you have been moving around a lot more than usual: not at all 9. Thoughts that you would be better off or of hurting yourself in some way: not at all Total score: 6 Depression Screening Interpretation: Positive Depression Screening Done: Yes Source: Developed by Drs. Fan Fitzpatrick, Saranya Dorantes, Simón Russo and colleagues, with an educational alana from [employer]. Thrive Questionnaire Date Thrive assessed: 07/15/24 I am a: Patient What is your living situation today?: I have a steady place to live Within the past 12 months, did the food you bought not last and you didn't have the money to get more?: Never true Within the past 12 months, did you worry whether your food would run out before you got money to buy more?: Sometimes True Do you have trouble paying for medicines?: No Do you have trouble getting transportation to medical appointments?: No Do you have trouble paying your heating and electricity bill?: No Do you have trouble taking care of your child, family member or friend?: No Do you have trouble with day-to-day activities such as bathing, preparing meals, shopping, managing finances, etc.?: No Are you currently unemployed and looking for a job?: No Are you interested in more education?: No Please select the resources that you would like help with: None Currently or been in a relationship where the following occur: No concerns reported THRIVE Score: 1 AUDIT C Alcohol Use Questionnaire (AUDIT-C) 1. How often do you have a drink containing alcohol?: Never 3. How often do you have six or more drinks on one occasion?: Never Total Score: 0 STEPHEN-7 AMB Questionnaire STEPHEN-7 Date STEPHEN - 7 assessed: 07/15/24 Feeling nervous, anxious, or on edge: 2 = More than half the days Not being able to stop or control worryin = More than half the days Worrying too much about different things: 2 = More than half the days Trouble relaxin = More than half the days Being so restless that it is hard to sit still: 0 = Not at all Becoming easily annoyed or irritable: 0 = Not at all Feeling afraid as if something awful might happen: 0 = Not at all Total STEPHEN-7 score (0-4 normal; 5-9 mild; 10-14 moderate; 15-21 severe): 8 Source: Developed by Drs. Fan Fitzpatrick, Saranya Dorantes, Simón Russo and colleagues, with an educational alana from [employer]. Physical exam (Primary Care) Vital Signs: Last Vital Signs Pulse 120 H 07/15/24 12:18 BP 122/68 07/15/24 12:18 Pulse Ox 97 07/15/24 12:18 Oxygen Delivery Method Room Air 07/15/24 12:18 BMI result Body Mass Index 41.7 Tobacco/Smoking Status: Tobacco use Status Tobacco use date assessed 04/10/24 07/15/24 12:25 Patient Tobacco Use Status Former Tobacco user 07/15/24 12:25 Tobacco use type Cigarette 07/15/24 12:25 e-Cigarette/Vaping Use Never Used 07/15/24 12:25 PHQ-9: PHQ-9 Score PHQ-9: Total score 6 07/15/24 12:25 Depression Screening Interpretation: Positive Thrive Assessment: Date of Thrive Assessment Date Thrive assessed 07/15/24 07/15/24 12:25 Currently or been in a relationship where the following occur: No concerns reported Const General: alert; No acute distress Eyes Conjunctivae: conjunctivae normal Resp Auscultation: clear to auscultation bilaterally Cardio Rate: regular rate Rhythm: regular rhythm GI Inspection: Yes normal to inspection Extrem General: Yes normal to inspection and No edema Coding Level of Care Code Est Pt Level 4 (18073) Complex EM visit Add On G2211 Diagnoses Morbid obesity E66.01 Essential hypertension I10 Hypertension type: essential hypertension Type 2 diabetes mellitus with hyperglycemia, without long-term current use of insulin E11.65 Diabetes mellitus residential insulin use: without residential use Hypercholesterolemia E78.00 Pulmonary nodule R91.1 Assessment & Plan Assessment & Plan (1) Morbid obesity: Code(s): E66.01 - Morbid (severe) obesity due to excess calories Category: Medical Plan: Diet and exercise (2) Hypertension: Code(s): I10 - Essential (primary) hypertension Category: Medical Qualifiers: Hypertension type: essential hypertension Qualified Code(s): I10 - Essential (primary) hypertension Plan: Continue with blood pressure medication. Decrease salt intake and exercise on lisinopril 20 mg once a day (3) Type 2 diabetes mellitus with hyperglycemia: Comment: [facility] Code(s): E11.65 - Type 2 diabetes mellitus with hyperglycemia Category: Medical Qualifiers: Diabetes mellitus residential insulin use: without residential use Qualified Code(s): E11.65 - Type 2 diabetes mellitus with hyperglycemia Plan: Decrease the amount of carbohydrate intake, pasta, bread, rice and potatoes are all sugar and that is aside from all the sweet stuff, remember that fruits are good but they are Sweet also. Hemoglobin A1c goal of less than 7.0 on Mounjaro metformin Jardiance (4) Hypercholesterolemia: Code(s): E78.00 - Pure hypercholesterolemia, unspecified Category: Medical Plan: Avoid fried foods, chicken skin, eggs, butter margarine, pastries and meat. Be it pork or beef they have a lot of cholesterol LDL goal of less than 100 and triglyceride of less than 150. June 2024 last blood work (5) Pulmonary nodule: Code(s): R91.1 - Solitary pulmonary nodule Category: Medical Plan: Discussed pulmonary nodule and CAT scan request Plan History of Present Illness The patient is an 78-year-old male presenting with concerns related to a pulmonary nodule identified following an emergency room visit on July 05, 2024. The main finding on a chest X-ray was a small right basilar atelectasis/infiltrate and an 8 mm nodule in the right upper hemithorax, raising the need for further evaluation with a CT scan. In the meantime, the patient was treated for bronchitis with doxycycline and prednisone. His background reveals a complex medical history: essential hypertension managed with lisinopril, asthma, obstructive sleep apnea with CPAP intolerance, type 2 diabetes with an A1c goal met under treatment with Mounjaro, metformin, and Jardiance, generalized anxiety disorder, and a history of abdominal aortic aneurysm. Colon screening was last conducted in November 2022, and recent blood work indicated good diabetic control and normal liver function. Managing morbid obesity with dietary changes and exercise is part of the current comprehensive care approach. Health Maintenance - Colon screening performed in November 2022 - Regular blood work, last completed July 05, 2024 - Diabetes management with a hemoglobin A1c goal of less than 7.0 - LDL cholesterol management with a goal of less than 100 mg/dL - Triglycerides management goal of less than 150 mg/dL - Diet and exercise for weight management Social History - Diet and exercise as part of weight management plan Review of Systems - Respiratory: Reports bronchitis - General: Denies new symptoms since last visit Physical Exam Results - Tests: Chest X-ray showing small right basilar atelectasis/infiltrate and 8 mm pulmonary nodule in right upper hemithorax - Labs: Hemoglobin A1c at 6.4, normal liver function, LDL cholesterol of 88 mg/dL, normal urine test Plan I recommend continued observation of the pulmonary nodule with a CT scan for further evaluation. The patient?s hypertension will continue being managed with lisinopril. The current asthma management remains unchanged, and for obstructive sleep apnea, emphasis is on weight management. Diabetes management is satisfactory, with medications such as Mounjaro, metformin, and Jardiance being effective in maintaining an acceptable hemoglobin A1c level. For cholesterol management, maintaining LDL levels below 100 mg/dL is the goal with dietary modifications. The past bronchitis treatment with antibiotics and prednisone resolved the symptoms effectively. The patient is encouraged to maintain dietary and exercise changes to address obesity, with attention on regular follow-ups to evaluate progress. Patient was informed and verbally consented to the use of an ambient scribe for clinic note documentation during this visit. Discussion Notes I discussed with the patient the significance of the pulmonary nodule and the necessity of further evaluation with a CT scan to ensure an accurate diagnosis. We also reviewed the management strategies for his existing chronic conditions, including hypertension, diabetes, and the importance of addressing morbid obesity. We agreed on maintaining the current therapeutic regimens given their effectiveness, such as continuing lisinopril for hypertension and the current diabetes medications, while emphasizing regular monitoring. The patient acknowledged understanding of the treatment plan and agreed to follow the recommendations. We discussed the importance of ongoing lifestyle changes to improve overall health status and agreed on a follow-up plan. Patient Instructions - Follow the recommendation for a CT scan as planned - Continue lisinopril as prescribed for blood pressure - Maintain current diabetes medications and diet plan - Engage in regular exercise and healthy eating habits - Monitor symptoms and contact the clinic if new respiratory symptoms occur Orders: Orders CT chest w IV con Today R91.1 - Solitary pulmonary nodule Creatinine Today R91.1 - Solitary pulmonary nodule Blood Urea Nitrogen Today R91.1 - Solitary pulmonary nodule Medications: Refilled tirzepatide 5 mg (0.5 mL) subcut QWEEK 2 mL 3RF E11.65 - Type 2 diabetes mellitus with hyperglycemia
[2024-07-15 12:18] VITALS: BP 122/68; PULSE 120; O2SAT 97; BMI 41.7
== END 2024-07-15 12:54 | disposition home or self-care (01) ==
LOC: HO.HMCH 12:13
PROVIDERS: PCP Internal Medicine; Visit Provider Internal Medicine
DX: I10 Essential (primary) hypertension (principal); E66.01 Morbid (severe) obesity due to excess calories; E11.65 Type 2 diabetes mellitus with hyperglycemia; Z68.41 Body mass index [BMI] 40.0-44.9, adult; E78.00 Pure hypercholesterolemia, unspecified; R91.1 Solitary pulmonary nodule

== ENCOUNTER → 2024-07-15 12:12 | Outpatient (BNVA) | payer MEDICARE, MEDICAID, SELFPAY | PROVIDERS: PCP Internal Medicine; Visit Provider Internal Medicine | DX: E11.65 Type 2 diabetes mellitus with hyperglycemia (principal); E78.00 Pure hypercholesterolemia, unspecified; R91.1 Solitary pulmonary nodule; I10 Essential (primary) hypertension; E66.01 Morbid (severe) obesity due to excess calories; Z68.41 Body mass index [BMI] 40.0-44.9, adult; Z87.891 Personal history of nicotine dependence; Z71.3 Dietary counseling and surveillance | CPT/HCPCS: 99212 ==

== ENCOUNTER 2024-08-18 11:42 | Outpatient (REF) | payer MEDICARE, MEDICAID, SELFPAY ==
[2024-08-18 13:44] LABS: Blood Urea Nitrogen 13 mg/dL (9-16); Estimated Glomerular Filt Rate > 60
== END 2024-08-18 11:43 | disposition home or self-care (01) ==
LOC: HO.HMGCLDS 11:42
PROVIDERS: PCP Internal Medicine; Visit Provider Internal Medicine
DX: R91.1 Solitary pulmonary nodule (principal)
CPT/HCPCS: 36415; 82565; 84520

== ENCOUNTER 2024-09-02 12:53 | Outpatient (REF) | payer MEDICARE, MEDICAID, SELFPAY ==
--- NOTE | ~2024-09-02 | CT_ITS ---
EXAMINATION: CT CHEST WITH CONTRAST CLINICAL INFORMATION: R91.1 - Solitary pulmonary nodule in the right apex COMPARISON: July 05, 2024 chest x-ray TECHNIQUE: Multidetector volumetric CT imaging of the chest was obtained after the administration of 65 mL of Omnipaque 350 intravenous contrast without immediate adverse reactions. Axial MIP volume rendering provided. Sagittal and coronal reformatted images were obtained. This CT examination was performed using dose optimization techniques as appropriate, variously including the following: *Automated exposure control *Adjustment of mA and/or kV according to patient size (this includes techniques or standardized protocols for targeted exams where dose is matched to indication/reason for exam; i.e. extremities or head) *Use of iterative reconstruction technique DLP: 386 mGY*cm FINDINGS: LUNGS: The lungs are clear with no evidence of inflammation or nodules. MEDIASTINUM: The mediastinum is normal. PLEURA: There is no pleural effusion. No pleural mass or thickening. AXILLA: No lymphadenopathy. UPPER ABDOMEN: Unremarkable OSSEOUS STRUCTURES: There is an oval sclerotic lesion in the medial right clavicle measuring 4 x 6 mm and 1400 Hounsfield units consistent with a benign bone island. Disc space narrowing and endplate osteophytes are present throughout the imaged portions of the spine. CT/CT chest w IV con IMPRESSION: Nodular density projecting in the right apex on recent chest x-ray corresponds to a benign bone island in the medial clavicle. Fleischner guidelines were followed. Electronically signed by: Cornel Chacon MD 09/02/2024 02:29 PM EDT
[2024-09-02] MEDS: iohexoL 350 MG/ML 100 ML INFUS..BTL IV (14:18)
== END 2024-09-02 12:54 | disposition home or self-care (01) ==
LOC: HO.CT 12:53
PROVIDERS: PCP Internal Medicine; Visit Provider Internal Medicine
DX: R91.1 Solitary pulmonary nodule (principal)
CPT/HCPCS: 71260; Q9967

== ENCOUNTER → 2024-09-02 12:56 | Outpatient (BNV) | payer MEDICARE, MEDICAID, SELFPAY | PROVIDERS: PCP Internal Medicine; Visit Provider Radiology Diagnostic Radiology | DX: R91.1 Solitary pulmonary nodule (principal) | CPT/HCPCS: 71260 ==

== ENCOUNTER 2024-11-18 12:15 | Outpatient (AMB) | payer MEDICARE, MEDICAID, SELFPAY ==
[2024-11-18 12:21] VITALS: BP 138/82; PULSE 85; TEMP 36.1; O2SAT 95; BMI 42.1
--- NOTE | 2024-11-18 12:21 | A.OFFPC_ITS ---
Vital Signs 11/18/24 12:21 Height 5 ft 10 in Weight 293 lb 10.491 oz BMI 42.1 BP 138/82 Blood Pressure Location Lt brachial Position Sitting Pulse 85 Pulse Source Pulse Oximeter Temp 97.0 F Temp Source Temporal Artery Scan Pulse Oximetry (%) 95 Oxygen Delivery Method Room Air Intake Visit Reasons: DM, LBP, Pulmonary nodule Allergies semaglutide Allergy (Intermediate, Verified 11/18/24 12:25) nausea and vomiting and diarrhea Medication List - Last Reconciled 11/18/24 by Wendy Mcrae MD albuterol sulfate 2.5 mg (3 mL) inhalation QID PRN albuterol sulfate 90 mcg/actuation 2 puffs PO Q4-6H PRN blood sugar diagnostic (Guarnic Ultra Test strips) As directed check the blood sugar once a day blood-glucose meter As directed check the blood sugar once a day empagliflozin 25 mg PO DAILY fluticasone propionate 220 mcg/actuation 2 puffs inhalation BID fluticasone propionate 50 mcg/actuation 1 spray intranasal DAILY gabapentin 300 mg PO BEDTIME lisinopril 20 mg PO DAILY metformin 1,000 mg PO BID [motorized scooter As directed] [nebulizer As directed] oxycodone-acetaminophen 5-325 mg (Percocet) 1 tab PO TID PRN paroxetine HCl 20 mg PO QAM simvastatin 20 mg PO BEDTIME tirzepatide (Mounjaro) 7.5 mg (0.5 mL) subcut QWEEK Tobacco use date assessed: 11/18/24 Fall risk assessment: No Falls in past year Last assessed Fall Risk: 11/18/24 Dental Screening Dental Screen Date: 11/18/24 Did you have a dental visit in the last 12 months?: No Did you have a dental problem in the last 6 months where you did not have access to dental care?: No Was dental information given to patient?: No [facility] Medical History (Updated 11/18/24 @ 12:35 by Wendy Mcrae MD) Anxiety and depression Obesity Colon cancer screening Peripheral neuropathy Umbilical hernia Herniated intervertebral disc of lumbar spine Type 2 diabetes mellitus with hyperglycemia Hypercholesterolemia Gout Degenerative disc disease, lumbar Obstructive sleep apnea Hypertension Asthma Surgical History History of nasal surgery Family History Father No problems noted. Mother No problems noted. Social History Housing: Assisted Living Facility Alcohol intake: former Patient Tobacco Use Status: Former Tobacco user Tobacco use type: Cigarette e-Cigarette/Vaping Use: Never Used Second Hand Smoke Exposure: No service: No Current occupational status: disabled Cognitive needs: No Hearing needs: Yes Vision needs: Yes Questionnaire PHQ-9 Over the last 2 weeks, how often have you been bothered by any of the following problems? 1. Little interest or pleasure in doing things: more than half the days 2. Feeling down, depressed, or hopeless: more than half the days 3. Trouble falling or staying asleep, or sleeping too much: more than half the days 4. Feeling tired or having little energy: not at all 5. Poor appetite or overeating: not at all 6. Feeling bad about yourself - or that you are a failure or have let yourself or your family down: not at all 7. Trouble concentrating on things, such as reading the newspaper or watching television: not at all 8. Moving or speaking so slowly that other people could have noticed. Or the opposite - being so fidgety or restless that you have been moving around a lot more than usual: not at all 9. Thoughts that you would be better off or of hurting yourself in some way: not at all Total score: 6 Depression Screening Interpretation: Positive Depression Screening Done: Yes Source: Developed by Drs. Fan Fitzpatrick, Saranya Dorantes, Simón Russo and colleagues, with an educational alana from [employer]. Thrive Questionnaire Date Thrive assessed: 07/15/24 I am a: Patient What is your living situation today?: I have a steady place to live Within the past 12 months, did the food you bought not last and you didn't have the money to get more?: Never true Within the past 12 months, did you worry whether your food would run out before you got money to buy more?: Sometimes True Do you have trouble paying for medicines?: No Do you have trouble getting transportation to medical appointments?: No Do you have trouble paying your heating and electricity bill?: No Do you have trouble taking care of your child, family member or friend?: No Do you have trouble with day-to-day activities such as bathing, preparing meals, shopping, managing finances, etc.?: No Are you currently unemployed and looking for a job?: No Are you interested in more education?: No Please select the resources that you would like help with: None Currently or been in a relationship where the following occur: No concerns reported THRIVE Score: 1 AUDIT C Alcohol Use Questionnaire (AUDIT-C) 1. How often do you have a drink containing alcohol?: Never 3. How often do you have six or more drinks on one occasion?: Never Total Score: 0 STEPHEN-7 AMB Questionnaire STEPHEN-7 Date STEPHEN - 7 assessed: 07/15/24 Feeling nervous, anxious, or on edge: 2 = More than half the days Not being able to stop or control worryin = More than half the days Worrying too much about different things: 2 = More than half the days Trouble relaxin = More than half the days Being so restless that it is hard to sit still: 0 = Not at all Becoming easily annoyed or irritable: 0 = Not at all Feeling afraid as if something awful might happen: 0 = Not at all Total STEPHEN-7 score (0-4 normal; 5-9 mild; 10-14 moderate; 15-21 severe): 8 Source: Developed by Drs. Fan Fitzpatrick, Saranya Dorantes, Simón Russo and colleagues, with an educational alana from [employer]. Physical exam (Primary Care) Vital Signs: Last Vital Signs Temp 97.0 F 11/18/24 12:21 Pulse 85 11/18/24 12:21 BP 138/82 11/18/24 12:21 Pulse Ox 95 11/18/24 12:21 Oxygen Delivery Method Room Air 11/18/24 12:21 BMI result Body Mass Index 42.1 Tobacco/Smoking Status: Tobacco use Status Tobacco use date assessed 11/18/24 11/18/24 12:27 Patient Tobacco Use Status Former Tobacco user 11/18/24 12:27 Tobacco use type Cigarette 11/18/24 12:27 e-Cigarette/Vaping Use Never Used 11/18/24 12:27 PHQ-9: PHQ-9 Score PHQ-9: Total score 6 11/18/24 12:35 Depression Screening Interpretation: Positive Thrive Assessment: Date of Thrive Assessment Date Thrive assessed 07/15/24 11/18/24 12:27 Currently or been in a relationship where the following occur: No concerns reported Const General: alert; No acute distress Eyes Conjunctivae: conjunctivae normal Resp Auscultation: clear to auscultation bilaterally Cardio Rate: regular rate Rhythm: regular rhythm GI Inspection: Yes normal to inspection Extrem General: Yes normal to inspection and No edema Results AMB Hemoglobin A1c AMB Hemoglobin A1c 6.4 % Last Edit by Batool Talbert CMA on 11/18/24 12:31 Results Reviewed Results Reviewed: Laboratory Last Values Hgb A1c (Clinic) 6.4 % (4.0-6.0) H 11/18/24 12:28 Coding Level of Care Code Est Pt Level 4 (28834) Complex EM visit Add On G2211 Diagnoses Type 2 diabetes mellitus with hyperglycemia, without long-term current use of insulin E11.65 Diabetes mellitus group home insulin use: without regional intermodal truck driver use Essential hypertension I10 Hypertension type: essential hypertension Hypercholesterolemia E78.00 Generalized anxiety disorder F41.1 Morbid obesity E66.01 Pulmonary nodule R91.1 Degenerative disc disease, lumbar M51.36 Assessment & Plan Assessment & Plan (1) Type 2 diabetes mellitus with hyperglycemia: Comment: eye [facility] Code(s): E11.65 - Type 2 diabetes mellitus with hyperglycemia Category: Medical Qualifiers: Diabetes mellitus group home insulin use: without regional intermodal truck driver use Qualified Code(s): E11.65 - Type 2 diabetes mellitus with hyperglycemia Plan: Decrease the amount of carbohydrate intake, pasta, bread, rice and potatoes are all sugar and that is aside from all the sweet stuff, remember that fruits are good but they are Sweet also. Hemoglobin A1c goal of less than 7.0. On Jardiance 25 mg once a day metformin a 1000 mg twice a day (2) Hypertension: Code(s): I10 - Essential (primary) hypertension Category: Medical Qualifiers: Hypertension type: essential hypertension Qualified Code(s): I10 - Essential (primary) hypertension Plan: Continue with blood pressure medication. Decrease salt intake and exercise takes lisinopril 20 mg once a day (3) Hypercholesterolemia: Code(s): E78.00 - Pure hypercholesterolemia, unspecified Category: Medical Plan: Avoid fried foods, chicken skin, eggs, butter margarine, pastries and meat. Be it pork or beef they have a lot of cholesterol LDL goal of less than 100 and triglyceride of less than 150 patient on simvastatin 20 mg once a day last blood work was in June 2024 and at goal (4) Generalized anxiety disorder: Comment: decline counselling 02/2021 Code(s): F41.1 - Generalized anxiety disorder Category: Medical Plan: Continue with present management with paroxetine (5) Morbid obesity: Code(s): E66.01 - Morbid (severe) obesity due to excess calories Category: Medical Plan: Diet and exercise (6) Pulmonary nodule: Comment: August 2024Nodular density projecting in the right apex on recent chest x-ray corresponds to a benign bone island in the medial clavicle. Code(s): R91.1 - Solitary pulmonary nodule Category: Medical Plan: CT scan done no pulmonary nodule. (7) Degenerative disc disease, lumbar: Code(s): M51.36 - Other intervertebral disc degeneration, lumbar region Category: Medical Plan: Narcotic pain meds: Is being prescribed with the understanding that these medications are potentially addictive and should be used only when absolutely necessary and must always be secured. Any remaining pills should be safely disposed off appropriately. Patient is advised that narcotics can impaired judgment and one should not drive or operate heavy machinery while taking these medications. Never share these medications with anybody and do not leave them unattended. They will not be replaced under any circumstances. Plan History of Present Illness The patient is an 79-year-old male presenting for a follow-up visit. The patient has a history of obstructive sleep apnea but is unable to tolerate CPAP therapy. He also has asthma, hypertension, generalized anxiety disorder, lumbar degenerative disc disease, diabetes mellitus, and hypercholesterolemia. In August 2024, a CT scan of the chest was performed to evaluate a pulmonary nodule, which revealed a nodular density in the right apex corresponding to a bone island. The patient's last blood work was conducted on July 05, showing no anemia, normal electrolytes, and renal function. His hemoglobin A1c was 6.4, indicating controlled diabetes, and his LDL cholesterol was 88 mg/dL, which was at goal. The patient is on a diabetes management plan with a hemoglobin A1c goal of less than 7.0, taking Jardiance 25 mg once daily and metformin 1000 mg twice daily. For hypertension, he takes lisinopril 20 mg once daily. His cholesterol management includes simvastatin 20 mg once daily, with an LDL goal of less than 100 mg/dL and triglycerides less than 150 mg/dL. The patient reports a weight gain of 3 pounds since the last visit, attributed to discontinuation of Mounjaro due to insurance coverage issues. He is considering resuming Mounjaro if insurance coverage is approved. The patient received a flu shot for the elderly two weeks ago and has previously received the shingles vaccine. He has declined a colonoscopy. Health Maintenance - Vaccinations: Received flu shot for the elderly two weeks ago, shingles vaccine previously administered - Preventative care: Declined colonoscopy Social History - Mobility: Patient still drives and occasionally visits [facility], but reports unsteady walking and leans on a carriage for support. - Weight Management: Reports weight gain after discontinuing Mounjaro due to insurance issues. Review of Systems - Respiratory: Reports obstructive sleep apnea, asthma - Cardiovascular: Denies chest pain, reports hypertension - Endocrine: Reports diabetes mellitus, hypercholesterolemia - Musculoskeletal: Reports lumbar degenerative disc disease - Neurological: Denies dizziness, reports generalized anxiety disorder Physical Exam Results - Labs: Hemoglobin A1c 6.4, LDL cholesterol 88 mg/dL, normal electrolytes and renal function, no anemia - Imaging: CT scan of the chest in August 2024 showed a nodular density in the right apex corresponding to a bone island Plan Patient was informed and verbally consented to the use of an ambient scribe for clinic note documentation during this visit. 1. Obstructive Sleep Apnea The patient is unable to tolerate CPAP therapy for obstructive sleep apnea. 2. Asthma Asthma management was not specifically discussed during this visit. 3. Hypertension The patient is currently taking lisinopril 20 mg once daily for hypertension management. 4. Generalized Anxiety Disorder The patient continues with current management, including paroxetine. 5. Lumbar Degenerative Disc Disease Lumbar degenerative disc disease management was not specifically discussed during this visit. 6. Diabetes Mellitus The patient is on a diabetes management plan with a hemoglobin A1c goal of less than 7.0, taking Jardiance 25 mg once daily and metformin 1000 mg twice daily. There was a discussion about resuming Mounjaro if insurance coverage is approved. 7. Hypercholesterolemia The patient is on simvastatin 20 mg once daily, with an LDL goal of less than 100 mg/dL and triglycerides less than 150 mg/dL. 8. Pulmonary Nodule A CT scan in August 2024 showed a nodular density in the right apex corresponding to a bone island, requiring no further intervention. Discussion Notes During the visit, I discussed the patient's current management plans for diabetes, hypertension, and hypercholesterolemia. We reviewed the recent CT scan results, which showed a bone island in the right apex, and I reassured the patient that no further intervention is needed. We also addressed the issue with Mounjaro prescription coverage and agreed to attempt resubmission for insurance approval. I advised the patient to continue with current medications and lifestyle modifications, including diet and exercise. We also discussed the importance of using the patient portal for communication and the steps involved in obtaining a motorized scooter if needed. Patient Instructions - Continue taking Jardiance, metformin, lisinopril, simvastatin, and paroxetine as prescribed. - Monitor blood sugar levels regularly and maintain a healthy diet and exercise routine. - Follow up with the pharmacy and insurance regarding Mounjaro coverage. - Use the patient portal for communication with the healthcare provider. - Consider physical therapy evaluation for a motorized scooter if mobility issues persist. Orders: Orders AMB Hemoglobin A1c Today Z13.9 - Encounter for screening, unspecified Medications: New [motorized scooter] As directed 1 ea 0RF M51.36 - Other intervertebral disc degeneration, lumbar region Refilled tirzepatide (Mounjaro) 7.5 mg (0.5 mL) subcut QWEEK 2 mL 2RF E11.65 - Type 2 diabetes mellitus with hyperglycemia
--- OUTSIDE RECORDS SUMMARY | 2024-11-18 13:18 | XMS_ITS | Clinical Summary ---
Author Organization [facility] Address [address] [place] [phone] Phone Care Team Providers Care Equal Employment Opportunity Officer Name Role Phone Pcp, Unknown Primary Care [...] Health Maintenance Due Date Last Done Comments DEPRESSION SCREENING 1957 ZOSTER VACCINES (1 of 2) 09/18/1993 RSV VACCINE (1 - 1-dose 75+ series) 09/18/2018 PNEUMOCOCCAL VACCINES (50+ years) (2 of 2 - PCV) 02/29/2020 02/28/2019 INFLUENZA VACCINE (#1) 2024 0, 12/06/2018, 11/02/2017, Additional history exists COVID-19 VACCINE (3 - season) 2024 04/14/2020, 03/24/2020 Adult Td,Tdap Booster 01/19/2029 01/19/2019 HEPATITIS A VACCINES Aged Out No long er eligible based on patient's age to complete this topic HIB VACCINES Aged Out No longer eligi ble based on patient's age to complete this topic MENINGOCOCCAL VACCINES (ACWY) Aged Out No longer eligible based on patient's age to complete this topic MENINGOCOCCAL VACCINES (B) Aged Out N o longer eligible based on patient's age to complete this topic Medical Devices Not on file Insurance MEDICARE PART A & B [facility] [address] [place], [place] [address]HEALTH MEDICARE PART A & B MEDICARE PART A & B HEALTH MEDICARE PART A & B MEDICARE PART A & B [facility] MEDICARE PART A & B [facility] Care Teams Equal Employment Opportunity Officer Relationship Specialty Start Date End Date Pcp, Unknown PCP - General 08/25/21 Additional Source Comments The information contained in this document represents components of the legal health record. It is not the complete legal health record.[facility]
== END 2024-11-18 12:48 | disposition home or self-care (01) ==
LOC: HO.HMCH 12:16
PROVIDERS: PCP Internal Medicine; Visit Provider Internal Medicine
DX: E11.65 Type 2 diabetes mellitus with hyperglycemia (principal); E66.01 Morbid (severe) obesity due to excess calories; I10 Essential (primary) hypertension; Z68.41 Body mass index [BMI] 40.0-44.9, adult; E78.00 Pure hypercholesterolemia, unspecified; F41.1 Generalized anxiety disorder; R91.1 Solitary pulmonary nodule; M51.369 Other intervertebral disc degeneration, lumbar region without mention of lumbar back pain or lower extremity pain

== ENCOUNTER → 2024-11-18 12:15 | Outpatient (BNVA) | payer MEDICARE, MEDICAID, SELFPAY | PROVIDERS: PCP Internal Medicine; Visit Provider Internal Medicine | DX: E11.65 Type 2 diabetes mellitus with hyperglycemia (principal); I10 Essential (primary) hypertension; E78.00 Pure hypercholesterolemia, unspecified; F41.1 Generalized anxiety disorder; R91.1 Solitary pulmonary nodule; M51.369 Other intervertebral disc degeneration, lumbar region without mention of lumbar back pain or lower extremity pain; E66.01 Morbid (severe) obesity due to excess calories; Z68.41 Body mass index [BMI] 40.0-44.9, adult; Z71.3 Dietary counseling and surveillance | CPT/HCPCS: 83036; 99212 ==